=== PATIENT | male | born 1960 | race Caucasian/White ===

== ENCOUNTER 2020-12-14 07:09 | Inpatient (IN) ==
[2020-12-14] MEDS ORDERED: IOPAMIDOL 100 ML BOTTLE IV ONE (07:10)
[2020-12-14] MEDS ORDERED: 0.9 % SODIUM CHLORIDE 1,000 ML IV ONE ×2 (07:42→10:05)
[2020-12-14] MEDS ORDERED: diphenhydrAMINE 50 MG/ML VIAL IV ONE (07:42)
[2020-12-14] MEDS ORDERED: PROCHLORPERAZINE 10 MG/2 ML VIAL IV ONE (07:42)
--- NOTE | 2020-12-14 07:52 | Emergency Department Note ---
Abdominal Pain HPI General Chief Complaint: Abdominal Pain Stated Complaint: Abd pain Time Seen by Provider: 12/14/20 07:42 Source: patient, EMS, RN notes reviewed and old records reviewed Mode of arrival: EMS Limitations: no limitations History of Present Illness HPI Narrative: Narrative: 60-year-old male complains of abdominal pain worsening times the last 24 hours with nausea and vomiting. He describes it as is pancreatitis pain. Has a history of pancreatitis from alcohol abuse. He has positive nausea vomiting no hematemesis or coffee-ground emesis no bright red blood per rectum black tarry stools or diarrhea MD Complaint: abdominal pain Onset (ago): day(s) (1) Consistency: constant Location: epigastric Severity: severe Quality: stabbing and sharp Radiation: back Migration to: no migration Improves with: nothing Worsens with: eating Context: history of similar episodes (History of pancreatitis with similar presentation) Associated symptoms: Reports nausea and vomiting; Denies diarrhea, fever, chills, constipation, dysuria, hematemesis, hematochezia, melena, hematuria, anorexia and syncope Related Data Previous Rx's Medication Instructions Recorded ciprofloxacin 0.3 %-dexamethasone 4 drp OTIC BID #7.5 ml 12/21/19 0.1 % ear drops,suspension Allergies Allergy/AdvReac Type Severity Reaction Status Date / Time No Known Drug Allergies Allergy Verified 12/14/20 07:09 Review of Systems ROS ROS Narrative: Narrative: Constitutional: Denies fever, chills and weakness Eyes: Denies vision change ENT ED: Denies throat pain Cardiovascular: Denies chest pain Respiratory: Reports shortness of breath Gastrointestinal: Reports abdominal pain, nausea and vomiting Musculoskeletal: Denies back pain Integumentary: Reports rash, lesions and change in color Neurological: Denies headache Psychiatric: Denies depression Endocrine: Denies fatigue Hematological/Lymphatic: Denies easy bruising Allergic/Immunologic: Denies urticaria PFSH Narrative Patient History Narrative: Narrative: Medical/Surgical/Family History All Active Problems (Updated 12/14/20 @ 15:09 by Efren Arango MD) Anemia (Acute) Pancreatitis (Acute) Social History Smoking Status: Current every day smoker Exam Narrative Narrative: Narrative: General Limitations: no limitations General appearance: Present alert, in distress and thin Head Head: Present atraumatic and normocephalic Eye Eye: Present normal appearance, PERRL and EOMI ENT ENT: Present normal exam and mucous membranes dry Neck Neck: Present normal inspection and full ROM Chest Chest: Present normal inspection; Absent tenderness Respiratory Respiratory: Present normal lung sounds bilaterally; Absent respiratory distress Cardiovascular Cardiovascular: Present regular rate and normal rhythm; Absent systolic murmur Adbominal Abdominal: Present soft, tenderness, hypoactive bowel sounds and scar; Absent d istention, guarding, rebound, Cruz's sign, tenderness at McBurney's Point and ascites Rectal Rectal: Present decreased rectal tone, heme (-) stool, mass, tenderness and other (Multiple at bedtime lesions on buttocks with hypertrophy in the perirectal area); Absent normal inspection, normal rectal tone, black stool, fecal impaction and prostate tenderness Extremities Extremities: Present normal inspection and full ROM; Absent tenderness, pedal edema and pretibial edema Back Back: Present normal inspection; Absent CVA tenderness (R) and CVA tenderness (L) Neurological Neurological: Present alert and oriented X3 Psychiatric Psychiatric: Present normal affect and normal mood Skin Skin: Present rash and other (Multiple skin lesions on body worse in axillas bilaterally. Patient describes it as a chronic condition HS) Course Vital Signs Vital signs: Vital Signs Temperature 97.9 F 12/14/20 07:09 Pulse Rate 63 12/14/20 07:09 Respiratory Rate 22 12/14/20 07:09 Blood Pressure 127/106 12/14/20 07:09 Pulse Oximetry (%) 100 12/14/20 07:09 Temperature 97.9 F 12/14/20 07:09 Pulse Rate 89 12/14/20 14:01 Respiratory Rate 22 12/14/20 07:09 Blood Pressure 135/114 12/14/20 14:01 Pulse Oximetry (%) 100 12/14/20 14:01 [facility] Narrative Medical decision making narrative: Narrative: Patient has elevated lipase consistent with pancreatitis received IV fluids IV morphine Compazine with diminished abdominal pain diminished nausea vomiting received Ativan for alcohol withdrawal prophylaxis patient will require continued parenteral pain medicines and IV fluids discussed with hospitalist who graciously agreed to admission Lab Data Result diagrams: 12/14/20 08:10 12/14/20 08:10 Labs: Lab Results 12/14/20 12/14/20 12/14/20 Range/Units 08:10 08:10 08:10 WBC 14.2 H (4.5-11.0) K/mcL RBC 3.02 L (4.50-5.90) M/mcL Hgb 6.9 L* (13.5-16.5) g/dL Hct 23.3 L (41.0-55.0) % MCV 77.2 L (80.0-100.0) fL MCH 22.8 L (26.0-34.0) pg MCHC 29.6 L (31.0-36.0) g/dL RDW 18.0 H (11.5-14.5) % Plt Count 411 (140-440) K/mcL MPV 9.7 (7.4-10.4) fL Neut % (Auto) 82.4 H (38.0-78.0) % Lymph % (Auto) 10.3 L (15.0-49.0) % [place] % (Auto) 6.6 (1.0-12.0) % Eos % (Auto) 0.3 (0.0-7.0) % Baso % (Auto) 0.4 (0.0-2.0) % Lymph # (Auto) 1.47 L (1.50-4.80) K/mcL [place] # (Auto) 0.94 H (0.10-0.90) K/mcL Eos # (Auto) 0.04 (0.00-0.70) K/mcL Baso # (Auto) 0.05 (0.00-0.20) K/mcL Absolute Neutrophils 11.71 H (1.80-8.00) K/mcL VBG Lactic Acid 1.5 (0.5-2.0) mmol/L Sodium 135 (133-145) mmol/L Potassium 3.3 (3.3-5.1) mmol/L Chloride 109 H (96-108) mmol/L Carbon Dioxide 13 L (22-30) mmol/L Anion Gap 13.0 (8.0-16.0) BUN 27 H (8-23) mg/dL Creatinine 1.3 H (0.7-1.2) mg/dL POC Creatinine 1.3 H (0.6-1.2) mg/dL GFR Calculation 58 Glucose 154 H (70-105) mg/dL Calcium 9.0 (8.6-10.4) mg/dL Total Bilirubin 0.2 (0.1-1.0) mg/dL AST 10 (<40) U/L ALT < 5 (<40) U/L Alkaline Phosphatase 67 (39-117) U/L Troponin T (<0.03) ng/mL Total Protein 9.0 H (5.9-8.4) gm/dL Albumin 2.7 L (3.2-5.2) gm/dL Globulin 6.3 H (2.2-3.7) gm/dL Albumin/Globulin Ratio 0.4 L (1.0-2.3) Lipase 1683 H (7-60) U/L Ethyl Alcohol (<0.010) gm/dL 12/14/20 12/14/20 Range/Units 08:10 08:10 WBC (4.5-11.0) K/mcL RBC (4.50-5.90) M/mcL Hgb (13.5-16.5) g/dL Hct (41.0-55.0) % MCV (80.0-100.0) fL MCH (26.0-34.0) pg MCHC (31.0-36.0) g/dL RDW (11.5-14.5) % Plt Count (140-440) K/mcL MPV (7.4-10.4) fL Neut % (Auto) (38.0-78.0) % Lymph % (Auto) (15.0-49.0) % [place] % (Auto) (1.0-12.0) % Eos % (Auto) (0.0-7.0) % Baso % (Auto) (0.0-2.0) % Lymph # (Auto) (1.50-4.80) K/mcL [place] # (Auto) (0.10-0.90) K/mcL Eos # (Auto) (0.00-0.70) K/mcL Baso # (Auto) (0.00-0.20) K/mcL Absolute Neutrophils (1.80-8.00) K/mcL VBG Lactic Acid (0.5-2.0) mmol/L Sodium (133-145) mmol/L Potassium (3.3-5.1) mmol/L Chloride (96-108) mmol/L Carbon Dioxide (22-30) mmol/L Anion Gap (8.0-16.0) BUN (8-23) mg/dL Creatinine (0.7-1.2) mg/dL POC Creatinine (0.6-1.2) mg/dL GFR Calculation Glucose (70-105) mg/dL Calcium (8.6-10.4) mg/dL Total Bilirubin (0.1-1.0) mg/dL AST (<40) U/L ALT (<40) U/L Alkaline Phosphatase (39-117) U/L Troponin T < 0.01 (<0.03) ng/mL Total Protein (5.9-8.4) gm/dL Albumin (3.2-5.2) gm/dL Globulin (2.2-3.7) gm/dL Albumin/Globulin Ratio (1.0-2.3) Lipase (7-60) U/L Ethyl Alcohol < 0.010 (<0.010) gm/dL EKG Data EKG #1: EKG attestation: Yes I reviewed and interpreted this EKG. EKG shows normal: sinus rhythm Rate: normal (64) Rhythm: NSR [place]/QRS: normal ST segment depression in: II, III and aVF Q waves: None T wave inversions noted in: None Hyperacute T waves: None QTc: normal Interpretation: nonspecific ST-T wave changes Pulse Oximetry Data Pulse Ox %: 100 Interpretation: 100% on room air within normal limits. Discharge Plan Patient/Caregiver Discharge Instructions Pt seen by SENIOR PRODUCT DEVELOPMENT SCIENTIST/PA only: No Clinical Impression: Pancreatitis, Anemia Patient Disposition: Xfer As Inpt ([facility]) Follow up with: [facility] [Primary [facility]] - Prescriptions: No Action Ciprodex 0.3-0.1 % drops,suspension 4 drp OTIC BID Qty: 7.5 RF: 0
[2020-12-14] MEDS: HYDROmorphone 0.5 MG/0.5 ML SYRINGE IV PRN ×5 (07:57→23:19)
--- NOTE | 2020-12-14 08:04 | XRay Report ---
INDICATION: SOB TECHNIQUE: AP portable upright chest x-ray COMPARISON: None FINDINGS: Lungs:Lungs are negative. No focal pulmonary parenchymal infiltrate or mass Heart, vascular:No significant cardiomegaly. Pulmonary vascularity is normal. No pulmonary edema or pulmonary congestion Mediastinum, flo:No mediastinal widening. No hilar mass Pleura:No pleural fluid. No pleural-based mass or calcification Skeletal:Negative. IMPRESSION: Negative AP chest x-ray Interpreted and Authenticated by: Juan Manuel Topete 12/14/20
[2020-12-14 08:38] LABS: POC Creatinine 1.3 mg/dL (0.6-1.2)
--- NOTE | 2020-12-14 09:28 | Cat Scan Report ---
INDICATION: Epigastric pain with history of pancreatitis COMPARISON: None. TECHNIQUE: Axial images were obtained through the abdomen and pelvis. Sagittally and coronally reformatted images. 80 mL Isovue 370 injected intravenously. Oral contrast material was not administered FINDINGS: Lung bases:Negative. No pulmonary parenchymal nodule. No pleural fluid or pericardial fluid Liver:Negative. No focal intrahepatic mass. No focal abnormality. Liver contour is smooth. No evidence for cirrhosis Gallbladder, bilary:No calcified gallstones. No gallbladder wall thickening. No dilated intra or extrahepatic bile ducts. Spleen:There is splenomegaly. Spleen measures 14 x 14 x 5 cm. No intrasplenic abnormality. Normal enhancement of the splenic and portal vein. Pancreas:There is peripancreatic inflammatory change consistent with interstitial edematous pancreatitis. Pancreas is perfused. There is no pancreatic mass. No pancreatic duct dilatation. No evidence for pancreatic abscess or necrosis. There is no pseudocyst. No free intraperitoneal fluid. No dissection of fluid or inflammatory change into the retroperitoneal pelvis Adrenal glands:Negative Kidneys, ureters, bladder:No solid renal mass. No hydronephrosis. No obstructing calculi. There is no hydroureter. No ureteral stone No bladder calculi or detectable mass Gastrointestinal:No detectable colonic mass. There is no diverticulitis. Jejunum is prominent and fluid-filled. This is probably ileus related to pancreatitis. No evidence for mechanical small bowel obstruction Stomach and duodenum are unremarkable Appendix: The appendix is not visualized. No evidence for appendicitis Vascular:Mild calcification of the abdominal aorta. No abdominal aortic aneurysm. Normal celiac trunk, superior mesenteric artery, inferior mesenteric artery Lymphatic:Mild peripancreatic adenopathy. No para-aortic or iliac chain adenopathy. There are prominent inguinal lymph nodes bilaterally. Largest node on the left measures 2.0 cm in diameter. Largest node on the right measures 2.2 cm in diameter. Mesentery, peritoneum: No intra-abdominal abscess. No pneumoperitoneum Reproductive:No significant prostatic enlargement Musculoskeletal:No lumbar compression fractures. There is marked degenerative disc disease at L5-S1. Sacrum and pelvis are negative. No hip fracture. There is extensive cutaneous and subcutaneous abnormality. In the left lower quadrant there is subcutaneous soft tissue density and evidence for skin ulceration. There is marked CT knee is thickening with cutaneous and subcutaneous gas bubbles overlying the buttocks and perineum. No well-defined discrete abscess. IMPRESSION: 1. Interstitial edematous pancreatitis. No pancreatic mass. No pancreatic necrosis or abscess 2. Extensive cutaneous abnormality in the left lower quadrant as well as over the buttocks and perineum 3. Splenomegaly 4. Mild peripancreatic adenopathy. Prominent inguinal lymph nodes bilaterally The exam was performed using radiation dose optimization techniques including, but not limited to, automated exposure control, adjustment of the mA and/or kV according to patient size and use of iterative reconstruction technique. Interpreted and Authenticated by: Juan Manuel Topete 12/14/20
[2020-12-14 09:47] LABS: Basophils # (Auto) 0.05 K/mcL (0.00-0.20); Basophils % (Auto) 0.4 % (0.0-2.0); Eosinophils # (Auto) 0.04 K/mcL (0.00-0.70); Eosinophils % (Auto) 0.3 % (0.0-7.0); Hematocrit 23.3 % (41.0-55.0); Hemoglobin 6.9 g/dL (13.5-16.5); Lymphocytes # (Auto) 1.47 K/mcL (1.50-4.80); Lymphocytes % (Auto) 10.3 % (15.0-49.0); Mean Cell Volume 77.2 fL (80.0-100.0); Mean Corpuscular HGB Conc 29.6 g/dL (31.0-36.0); Mean Platelet Volume 9.7 fL (7.4-10.4); Monocytes # (Auto) 0.94 K/mcL (0.10-0.90); Monocytes % (Auto) 6.6 % (1.0-12.0); Neutrophils % (Auto) 82.4 % (38.0-78.0); Platelet Count 411 K/mcL (140-440); RBC 3.02 M/mcL (4.50-5.90); WBC 14.2 K/mcL (4.5-11.0)
[2020-12-14 10:00] LABS: ALT/SGPT < 5 U/L (<40); AST/SGOT 10 U/L (<40); Albumin 2.7 gm/dL (3.2-5.2); Albumin/Globulin Ratio 0.4 (1.0-2.3); Alcohol, Blood < 10.0 mg/dL; Alcohol,Blood < 0.010 gm/dL (<0.010); Alkaline Phosphatase 67 U/L (39-117); Bilirubin,Total 0.2 mg/dL (0.1-1.0); Blood Urea Nitrogen 27 mg/dL (8-23); Carbon Dioxide 13 mmol/L (22-30); Chloride 109 mmol/L (96-108); Globulin 6.3 gm/dL (2.2-3.7); Glomerular Filtration Rate 58; Glucose 154 mg/dL (70-105)
[2020-12-14] MEDS ORDERED: LORazepam 2 MG/ML VIAL IV ONE (14:41)
[2020-12-14] MEDS ORDERED: HYDROmorphone 1 MG/ML SYRINGE IV ONE (14:41)
[2020-12-14 15:53] LABS: Iron 16 ug/dL (61-157); TIBC Calculation 266 ug/dl (228-428); Transferrin % Saturation 6 % (20-50)
--- NOTE | 2020-12-14 16:00 | Internal Med History&Physical ---
HPI History of Present Illness Patient information: Note initiated : 12/14/20 at 3:51 pm Service Date, if different from initiated Date: [] Patient: Italo Angel 60 y/o M admitted on for Abd pain. Chief Complaint: [] History of present illness: Mr. Angel is a 60 year old male with a recurrent soft tissue infections, alcohol use disorder, previous acute pancreatitis who presented to the emergency department for pain and found to have acute morrison creatitis. The cause of acute pancreatitis is likely alcohol related. In the ED, the patient also had leukocytosis with WBC 14.2, microcytic anemia with hemoglobin 6.9, serum creatinine of 1.3. No prior labs are available for comparison. CT abdomen and pelvis with IV contrast showed interstitial edema test pancreatitis, no pancreatic mass, no pancreatic necrosis or abscess. The patient was admitted for management of acute pancreatitis and anemia. Review of Systems Review of systems: Review of systems Constitutional: no fever, fatigue, or weight loss Eyes: no vision changes or pain Cardiovascular: no chest pain, no palpitations Respiratory: no cough or dyspnea Gastrointestinal: positive for diffuse abdominal pain Genitourinary: no dysuria or difficulty voiding Musculoskeletal: no arthralgia or myalgia Integumentary: positive for skin infections Neurological: no focal weakness or numbness Psychiatric: no anxiety or depression PFSH PFSH All Active Problems (Updated 12/14/20 @ 15:09 by Efren Arango MD) Anemia (Acute) Pancreatitis (Acute) MEDS/ALLERGIES Home Medications and Allergies Home Medications Medication Instructions Recorded Confirmed Type ciprofloxacin 0.3 %-dexamethasone 4 drp OTIC BID #7.5 ml 12/21/19 12/21/19 Rx 0.1 % ear drops,suspension Allergies Allergy/AdvReac Type Severity Reaction Status Date / Time No Known Drug Allergies Allergy Verified 12/14/20 07:09 EXAM Constitutional Vitals: Temp Pulse Resp BP Pulse Ox 97.9 F 88 22 181/108 100 12/14/20 07:09 12/14/20 14:16 12/14/20 07:09 12/14/20 14:16 12/14/20 14:16 Additional findings Additional findings: Head: Atraumatic, normal inspection. Eyes: normal appearance, no scleral icterus. Neck: full ROM Respiratory: no respiratory distress. Cardiovascular: normal rate and rhythm, S1, S2. GI/Abdominal: diffusely tender, voluntary guarding Extremities: full range of motion, nontender. Neurological: CN II-XII intact, intact motor, intact sensation. Psychiatric: appears anxious Skin: warm, normal color DATA Data Completed and Pending Labs: Labs from last 24 hours 12/14/20 12/14/20 12/14/20 08:10 08:10 08:10 WBC RBC Hgb Hct MCV MCH MCHC RDW Plt Count MPV Neut % (Auto) Lymph % (Auto) [place] % (Auto) Eos % (Auto) Baso % (Auto) Lymph # (Auto) [place] # (Auto) Eos # (Auto) Baso # (Auto) Absolute Neutrophils VBG Lactic Acid Sodium Potassium Chloride Carbon Dioxide Anion Gap BUN Creatinine POC Creatinine GFR Calculation Glucose Calcium Iron Pending TIBC Pending Unsat Iron Binding Pending Transferrin % Sat Pending Ferritin Pending Total Bilirubin AST ALT Alkaline Phosphatase Troponin T < 0.01 Total Protein Albumin Globulin Albumin/Globulin Ratio Lipase Ethyl Alcohol < 0.010 12/14/20 12/14/20 12/14/20 08:10 08:10 08:10 WBC 14.2 H RBC 3.02 L Hgb 6.9 L* Hct 23.3 L MCV 77.2 L MCH 22.8 L MCHC 29.6 L RDW 18.0 H Plt Count 411 MPV 9.7 Neut % (Auto) 82.4 H Lymph % (Auto) 10.3 L [place] % (Auto) 6.6 Eos % (Auto) 0.3 Baso % (Auto) 0.4 Lymph # (Auto) 1.47 L [place] # (Auto) 0.94 H Eos # (Auto) 0.04 Baso # (Auto) 0.05 Absolute Neutrophils 11.71 H VBG Lactic Acid 1.5 Sodium 135 Potassium 3.3 Chloride 109 H Carbon Dioxide 13 L Anion Gap 13.0 BUN 27 H Creatinine 1.3 H POC Creatinine 1.3 H GFR Calculation 58 Glucose 154 H Calcium 9.0 Iron TIBC Unsat Iron Binding Transferrin % Sat Ferritin Total Bilirubin 0.2 AST 10 ALT < 5 Alkaline Phosphatase 67 Troponin T Total Protein 9.0 H Albumin 2.7 L Globulin 6.3 H Albumin/Globulin Ratio 0.4 L Lipase 1683 H Ethyl Alcohol A/P Narrative A/P Narrative: Assessment: 60-year-old male with history of alcohol use disorder episodes of acute pancreatitis admitted for acute pancreatitis likely secondary to alcohol use. #Acute pancreatitis-mild to moderate -probably secondary to alcohol use #Microcytic anemia #Elevated creatinine-BREANA versus CKD #Alcohol use disorder Plan -Aggressive IV fluid. -Analgesics as needed -Clear liquid diet-monitor nutritional status. -Check triglyceride level -1 unit PRBC. -Protonix IV twice daily. -Follow hemoglobin. -Iron studies. -Consider GI consult. -Daily CBC, inpatient panel. -Check CRP for severity. -DVT PPx: Heparin SQ -Code status: Tug Master Spent With Patient Time: Total time spent is greater than 50% in coordination of care (as documented) at patient's floor/unit and/or counseling patient:
[2020-12-14 16:03] LABS: Ferritin 63.7 ng/mL (30.0-400.0)
[2020-12-14] MEDS ORDERED: ONDANSETRON 4 MG/2 ML VIAL IV PRN (17:18)
[2020-12-14] MEDS ORDERED: 0.9 % SODIUM CHLORIDE 250 ML IV SCH (17:18)
[2020-12-14] MEDS ORDERED: LACTATED RINGERS 2,500 ML IV SCH (17:18)
[2020-12-14] MEDS ORDERED: NALOXONE HCL 0.4 MG/ML VIAL IV PRN (17:18)
[2020-12-14] MEDS ORDERED: NICOTINE 14 MG PATCH TOPICAL PRN (17:18)
[2020-12-14 18:36] LABS: Hematocrit 25.8 % (41.0-55.0); Hemoglobin 7.5 g/dL (13.5-16.5); Mean Cell Volume 76.6 fL (80.0-100.0); Mean Corpuscular HGB Conc 29.1 g/dL (31.0-36.0); Mean Platelet Volume 9.5 fL (7.4-10.4); Platelet Count 453 K/mcL (140-440); RBC 3.37 M/mcL (4.50-5.90); Red Cell Distribution Width 17.9 % (11.5-14.5); WBC 18.5 K/mcL (4.5-11.0)
[2020-12-14 19:02] LABS: Anisocytosis 1+ (None Seen); Hypochromasia 2+ (None Seen); Lymphocytes % 9 % (15-49); Microcytosis 1+ (None Seen); Monocytes % (Manual) 5 % (1-12); Platelet Estimate INCREASED (Normal); RBC Morphology ABNORMAL (Normal); Segmented Neutrophils % 86 % (38-78)
[2020-12-14 19:51] LABS: ALT/SGPT < 5 U/L (<40); AST/SGOT 11 U/L (<40); Albumin 2.7 gm/dL (3.2-5.2); Albumin/Globulin Ratio 0.4 (1.0-2.3); Alkaline Phosphatase 71 U/L (39-117); Bilirubin,Direct < 0.2 mg/dL (0-0.3); Bilirubin,Total 0.2 mg/dL (0.1-1.0); Blood Urea Nitrogen 24 mg/dL (8-23); Calcium 8.9 mg/dL (8.6-10.4); Carbon Dioxide 14 mmol/L (22-30); Chloride 110 mmol/L (96-108); Globulin 6.5 gm/dL (2.2-3.7); Glomerular Filtration Rate 71; Glucose 105 mg/dL (70-105); Lactate Dehydrogenase 90 U/L (135-225); Phosphorous 4.2 mg/dL (2.5-4.5); Triglycerides 71 mg/dL (<150); Uric Acid 5.9 mg/dL (2.5-8.0)
[2020-12-14] MEDS ORDERED: MAGNESIUM SULFATE 4 GM/100 ML BAG IV ONE ×2 (19:59→22:28)
[2020-12-14] MEDS: SENNOSIDES 1 TABLET PO SCH (20:46)
[2020-12-14] MEDS: DOCUSATE SODIUM 100 MG CAPSULE PO SCH (20:46)
[2020-12-14] MEDS: 0.9 % SODIUM CHLORIDE 10 ML SYRINGE IV SCH (20:47)
[2020-12-14] MEDS: HEPARIN 5,000 UNIT/ML VIAL SQ SCH (21:11)
[2020-12-15 00:58] LABS: Hematocrit 25.4 % (41.0-55.0); Hemoglobin 7.1 g/dL (13.5-16.5)
[2020-12-15] MEDS: HYDROmorphone 0.5 MG/0.5 ML SYRINGE IV PRN ×4 (03:43→23:30)
[2020-12-15] MEDS: PANTOPRAZOLE 40 MG VIAL IV SCH ×2 (06:40→16:42)
[2020-12-15] MEDS: 0.9 % SODIUM CHLORIDE 10 ML SYRINGE IV SCH ×3 (06:40→20:38)
[2020-12-15 07:14] LABS: ALT/SGPT < 5 U/L (<40); AST/SGOT 12 U/L (<40); Albumin 2.5 gm/dL (3.2-5.2); Albumin/Globulin Ratio 0.4 (1.0-2.3); Alkaline Phosphatase 67 U/L (39-117); Bilirubin,Direct < 0.2 mg/dL (0-0.3); Bilirubin,Total 0.2 mg/dL (0.1-1.0); Blood Urea Nitrogen 22 mg/dL (8-23); Calcium 8.6 mg/dL (8.6-10.4); Carbon Dioxide 16 mmol/L (22-30); Chloride 106 mmol/L (96-108); Globulin 5.8 gm/dL (2.2-3.7); Glomerular Filtration Rate 80; Glucose 91 mg/dL (70-105); Lactate Dehydrogenase 119 U/L (135-225); Phosphorous 3.2 mg/dL (2.5-4.5); Triglycerides 60 mg/dL (<150); Uric Acid 5.7 mg/dL (2.5-8.0)
[2020-12-15 07:15] LABS: Hematocrit 23.4 % (41.0-55.0); Mean Corpuscular HGB Conc 29.9 g/dL (31.0-36.0); Mean Platelet Volume 9.6 fL (7.4-10.4); Platelet Count 392 K/mcL (140-440); RBC 3.08 M/mcL (4.50-5.90); Red Cell Distribution Width 17.8 % (11.5-14.5); WBC 24.1 K/mcL (4.5-11.0)
[2020-12-15] MEDS ORDERED: 0.9 % SODIUM CHLORIDE 250 ML IV SCH (07:30)
[2020-12-15] MEDS ORDERED: LACTATED RINGERS 2,000 ML IV SCH ×2 (07:30→18:51)
[2020-12-15 07:52] LABS: HDL Cholesterol 32 mg/dL (>40); LDL Cholesterol,Calculated 49 mg/dL (<100); Non-HDL Cholesterol 61 mg/dL (<130); Triglycerides 63 mg/dL (<150)
[2020-12-15 08:01] LABS: Anisocytosis 1+ (None Seen); Band Neutrophils % 1 % (0-10); Basophils % (Manual) 1 % (0-2); Eosinophils % (Manual) 1 % (0-7); Hypochromasia 1+ (None Seen); Lymphocytes % 4 % (15-49); Monocytes % (Manual) 8 % (1-12); Platelet Estimate NORMAL (Normal); RBC Morphology ABNORMAL (Normal); Segmented Neutrophils % 85 % (38-78)
[2020-12-15] MEDS: HEPARIN 5,000 UNIT/ML VIAL SQ SCH ×2 (09:03→20:30)
[2020-12-15] MEDS: DOCUSATE SODIUM 100 MG CAPSULE PO SCH ×2 (09:04→20:30)
[2020-12-15] MEDS: LACTATED RINGERS 2,000 ML IV SCH ×2 (11:29→15:33)
--- NOTE | 2020-12-15 11:50 | Internal Med Progress Note ---
SUBJECTIVE Subjective Patient information: Note initiated : 12/15/20 at 11:50 am Service Date, if different from initiated Date: [] Patient: Italo Angel 60 y/o M admitted on 12/14/20 for Abd pain. Chief Complaint: [] Interval history: Mr. Angel is a 60 year old male with a recurrent soft tissue infections, alcohol use disorder, previous acute pancreatitis who presented to the emergency department for pain and found to have acute pancreatitis. The cause of acute pancreatitis is likely alcohol related. In the ED, the patient also had leukocytosis with WBC 14.2, microcytic anemia with hemoglobin 6.9, serum creatinine of 1.3. No prior labs are available for comparison. CT abdomen and pelvis with IV contrast showed interstitial edema test pancreatitis, no pancreatic mass, no pancreatic necrosis or abscess. The patient was admitted for management of acute pancreatitis and anemia. 12/15 Required another unit of pRBC, likely dilutional anemia from IV fluid overnight. Patient does not know his baseline hemoglobin and level of anemia is concerning for possible GI cause of slow bleed. Patient says he had a colonoscopy about 4 years ago that was reportedly unremarkable. Abdominal pain has improved from yesterday, continues on clear liquid diet. Protonix IV BID. Likely GI consult when abdominal pain has mostly improved from acute pancreatitis. Patient takes Humira for hidradenitis suppurativa but no recent changes, no other medications that could cause acute pancreatitis. CT scan did not show any cholelithiasis, no biliary dilation. Alcohol remains most likely reason for acute pancreatitis. Constitutional Vitals: Vital Signs Temp Pulse Resp BP Pulse Ox 98 F 83 14 145/77 98 12/15/20 11:38 12/15/20 11:38 12/15/20 11:38 12/15/20 11:38 12/15/20 11:38 Period Temp Pulse Resp BP Sys/Miller Pulse Ox Last 24 Hr 97.3 F-98.2 F 72-98 - 97-212/64-130 92-100 Intake and Output 12/14/20 12/15/20 12/15/20 21:59 05:59 13:59 Intake Total 3373 537 5331 Output Total 350 Balance 2893 379 8916 Weight 81.647 kg Intake & Output: Intake & Output 12/14/20 12/15/20 12/15/20 21:59 05:59 13:59 Intake Total 2381 806 7852 Output Total 350 Balance 5237 316 9105 Weight 81.647 kg Intake: IV 4921 048 9157 Sodium Chloride 0.9% 1,000 ml @ 1000 Wide Open IV [facility] Rx#: [id number] Lactated Ringers 2,500 ml @ 250 2500 mls/hr IV .Q10H [facility] Rx#: [id number] Oral 800 Blood Product 325 Output: Void Amount 350 Other: Urine Appearance Clear Urine Color Dark Yellow OBJ DATA Labs CBC & Chem 7: 12/15/20 05:13 12/15/20 05:13 Labs: Abnormal Lab Results 12/15/20 12/15/20 12/15/20 05:13 05:13 05:13 WBC 24.1 H RBC 3.08 L Hgb 7.0 L* Hct 23.4 L MCV 76.0 L MCH 22.7 L MCHC 29.9 L RDW 17.8 H Plt Count Neut % (Auto) Lymph % (Auto) Lymph # (Auto) [place] # (Auto) Seg Neutrophils % 85 H Lymphocytes % 4 L Absolute Neutrophils Platelet Estimate RBC Morphology Abnormal A Hypochromasia 1+ A Anisocytosis 1+ A Microcytosis Sodium 132 L Chloride Carbon Dioxide 16 L BUN Creatinine POC Creatinine Glucose Magnesium Iron Transferrin % Sat Lactate Dehydrogenase 119 L C-Reactive Protein 21.80 H Total Protein Albumin 2.5 L Globulin 5.8 H Albumin/Globulin Ratio 0.4 L HDL Cholesterol 32 L Lipase 12/15/20 12/14/20 12/14/20 00:20 17:48 17:48 WBC 18.5 H RBC 3.37 L Hgb 7.1 L 7.5 L Hct 25.4 L 25.8 L MCV 76.6 L MCH 22.3 L MCHC 29.1 L RDW 17.9 H Plt Count 453 H Neut % (Auto) Lymph % (Auto) Lymph # (Auto) [place] # (Auto) Seg Neutrophils % 86 H Lymphocytes % 9 L Absolute Neutrophils Platelet Estimate Increased A RBC Morphology Abnormal A Hypochromasia 2+ A Anisocytosis 1+ A Microcytosis 1+ A Sodium Chloride 110 H Carbon Dioxide 14 L BUN 24 H Creatinine POC Creatinine Glucose Magnesium 0.7 L* Iron Transferrin % Sat Lactate Dehydrogenase 90 L C-Reactive Protein Total Protein 9.2 H Albumin 2.7 L Globulin 6.5 H Albumin/Globulin Ratio 0.4 L HDL Cholesterol Lipase 12/14/20 12/14/20 12/14/20 08:10 08:10 08:10 WBC 14.2 H RBC 3.02 L Hgb 6.9 L* Hct 23.3 L MCV 77.2 L MCH 22.8 L MCHC 29.6 L RDW 18.0 H Plt Count Neut % (Auto) 82.4 H Lymph % (Auto) 10.3 L Lymph # (Auto) 1.47 L [place] # (Auto) 0.94 H Seg Neutrophils % Lymphocytes % Absolute Neutrophils 11.71 H Platelet Estimate RBC Morphology Hypochromasia Anisocytosis Microcytosis Sodium Chloride 109 H Carbon Dioxide 13 L BUN 27 H Creatinine 1.3 H POC Creatinine 1.3 H Glucose 154 H Magnesium Iron 16 L Transferrin % Sat 6 L Lactate Dehydrogenase C-Reactive Protein Total Protein 9.0 H Albumin 2.7 L Globulin 6.3 H Albumin/Globulin Ratio 0.4 L HDL Cholesterol Lipase 1683 H Meds: Medications Docusate Sodium (Docusate Sodium 100 Mg Capsule) 100 mg PO BID [facility] Last Admin: 12/15/20 09:04 Dose: 100 mg Documented by: Heparin Sodium (Porcine) (Heparin 5,000 Unit/Ml Vial) 5,000 unit SQ Q12 [facility] Last Admin: 12/15/20 09:03 Dose: 5,000 unit Documented by: Hydromorphone HCl (Hydromorphone 0.5 Mg/0.5 Ml Syringe) 0.5 mg IV Q2HP PRN; Protocol PRN Reason: Per Pain Protocol Last Admin: 12/15/20 06:41 Dose: 0.5 mg Documented by: Sodium Chloride (Sodium Chloride 0.9%) 250 mls @ 20 mls/hr IV .[id number] [facility] Stop: 12/15/20 19:59 Last Admin: 12/15/20 08:05 Dose: 20 mls/hr Documented by: Lactated Ringer's (Lactated Ringers) 2,000 mls @ 250 mls/hr IV .Q8H [facility] Last Admin: 12/15/20 11:29 Dose: 250 mls/hr Documented by: Naloxone HCl (Naloxone Hcl 0.4 Mg/Ml Vial) 0.1 mg IV Q2MIN PRN PRN Reason: Opiate Reversal Nicotine (Nicotine 14 Mg Patch) 14 mg TOPICAL DAILY@1000 PRN PRN Reason: Nicotine craving Ondansetron HCl (Ondansetron 4 Mg/2 Ml Vial) 4 mg IV Q6HP PRN PRN Reason: Nausea And Vomiting Pantoprazole Sodium (Pantoprazole 40 Mg Vial) 40 mg IV BIDAC [facility] Last Admin: 12/15/20 06:40 Dose: 40 mg Documented by: Senna (Sennosides 1 Tablet) 2 tab PO HS [facility] Last Admin: 12/14/20 20:46 Dose: Not Given Documented by: Sodium Chloride (0.9 % Sodium Chloride 10 Ml Syringe) 10 ml IV Q8 [facility] Last Admin: 12/15/20 06:40 Dose: 10 ml Documented by: A/P Narrative A/P Narrative: Assessment: 60-year-old male with history of alcohol use disorder, extensive hidradenitis supportive, previous acute pancreatitis admitted for acute pancreatitis likely secondary to alcohol use. #Acute pancreatitis-mild to moderate -probably secondary to alcohol use #Draining left buttock wound #Leukocytosis-acute pancreatitis vs infection (buttock abscess?) #Microcytic anemia-s/p 2 units pRBC -iron studies consistent with chronic inflammation -ED guaiac stool reportedly negative #Acute kidney injury-resolved w/ IVF (prerenal secondary acute pancreatitis) #Hidradenitis suppurativa-treated with Humira SQ weekly #Immunosuppression d/t Humira #Alcohol use disorder Plan -Continue IV fluid. -Analgesics as needed -Clear liquid diet-possible advance to full liquid diet soon -Replace electrolytes as needed. -Follow Hemoglobin, transfuse for < 7 or symptomatic anemia. -Protonix IV twice daily. -Daily CBC, inpatient panel. -Left buttock ultrasound. -Wound cultures-consider antibiotic for draining wound if WBC and CRP increase -Blood cultures x2 -Wound care surgery consulted (Dr. Mcgregor). -Follow CRP -Holding Humira -Consider GI consult. 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
--- NOTE | 2020-12-15 14:27 | Ultrasound Report ---
INDICATION: Evaluate for drainable fluid collection TECHNIQUE: Grayscale and color flow Doppler spectral imaging of the buttocks COMPARISON: CT scan dated 12/14/2020 FINDINGS: Patient has extensive induration and discoloration of the skin of the buttocks. This involves much of the back and portions of the abdomen. This is a chronic process. Sonographic appearance is very similar to the CT appearance with irregular subcutaneous and cutaneous densities. No well-defined drainable fluid collection. IMPRESSION: 1. Extensive cutaneous and subcutaneous abnormality 2. No well-defined focal fluid collection Interpreted and Authenticated by: Juan Manuel Topete 12/15/20
[2020-12-15] MEDS ORDERED: NALOXONE HCL 0.4 MG/ML VIAL IV PRN (16:39)
[2020-12-15] MEDS: LACTATED RINGERS 1,000 ML IV SCH (19:39)
[2020-12-15] MEDS: SENNOSIDES 1 TABLET PO SCH (20:31)
[2020-12-16] MEDS: LACTATED RINGERS 1,000 ML IV SCH (03:15)
[2020-12-16] MEDS: HYDROmorphone 0.5 MG/0.5 ML SYRINGE IV PRN ×3 (03:15→21:07)
[2020-12-16] MEDS: 0.9 % SODIUM CHLORIDE 10 ML SYRINGE IV SCH ×3 (06:34→21:11)
[2020-12-16 06:40] LABS: Hemoglobin 6.9 g/dL (13.5-16.5); Mean Cell Volume 77.7 fL (80.0-100.0); Mean Platelet Volume 9.6 fL (7.4-10.4); Platelet Count 278 K/mcL (140-440); RBC 2.96 M/mcL (4.50-5.90); Red Cell Distribution Width 18.9 % (11.5-14.5); WBC 17.6 K/mcL (4.5-11.0)
[2020-12-16] MEDS ORDERED: 0.9 % SODIUM CHLORIDE 250 ML IV SCH (06:45)
[2020-12-16 06:47] LABS: ALT/SGPT < 5 U/L (<40); AST/SGOT 11 U/L (<40); Albumin 1.9 gm/dL (3.2-5.2); Albumin/Globulin Ratio 0.4 (1.0-2.3); Alkaline Phosphatase 62 U/L (39-117); Bilirubin,Direct < 0.2 mg/dL (0-0.3); Bilirubin,Total 0.3 mg/dL (0.1-1.0); Blood Urea Nitrogen 19 mg/dL (8-23); Calcium 8.2 mg/dL (8.6-10.4); Carbon Dioxide 18 mmol/L (22-30); Chloride 108 mmol/L (96-108); Globulin 5.3 gm/dL (2.2-3.7); Glomerular Filtration Rate 58; Glucose 80 mg/dL (70-105); Lactate Dehydrogenase 160 U/L (135-225); Phosphorous 3.1 mg/dL (2.5-4.5); Triglycerides 78 mg/dL (<150); Uric Acid 5.5 mg/dL (2.5-8.0)
[2020-12-16] MEDS: PANTOPRAZOLE 40 MG VIAL IV SCH ×2 (06:55→17:00)
[2020-12-16 07:25] LABS: Anisocytosis 3+ (None Seen); Eosinophils % (Manual) 1 % (0-7); Hypochromasia 2+ (None Seen); Lymphocytes % 8 % (15-49); Microcytosis 1+ (None Seen); Monocytes % (Manual) 7 % (1-12); Platelet Estimate NORMAL (Normal); Polychromasia FEW (None Seen); RBC Morphology ABNORMAL (Normal); Segmented Neutrophils % 84 % (38-78)
[2020-12-16] MEDS ORDERED: LACTATED RINGERS 1,000 ML IV ONE (07:38)
[2020-12-16] MEDS ORDERED: MAGNESIUM SULFATE 2 GM/50 ML BAG IV ONE (07:39)
--- NOTE | 2020-12-16 09:09 | Internal Med Progress Note ---
SUBJECTIVE Subjective Patient information: Note initiated : 12/16/20 at 9:05 am Service Date, if different from initiated Date: [] Patient: Italo Angel 60 y/o M admitted on 12/14/20 for Abd pain. Chief Complaint: [] Interval history: Mr. Angel is a 60 year old male with a recurrent soft tissue infections, alcohol use disorder, previous acute pancreatitis who presented to the emergency department for pain and found to have acute pancreatitis. The cause of acute pancreatitis is likely alcohol related. In the ED, the patient also had leukocytosis with WBC 14.2, microcytic anemia with hemoglobin 6.9, serum creatinine of 1.3. No prior labs are available for comparison. CT abdomen and pelvis with IV contrast showed interstitial edema test pancreatitis, no pancreatic mass, no pancreatic necrosis or abscess. The patient was admitted for management of acute pancreatitis and anemia. 12/15 Required another unit of pRBC, likely dilutional anemia from IV fluid overnight. Patient does not know his baseline hemoglobin and level of anemia is concerning for possible GI cause of slow bleed. Patient says he had a colonoscopy about 4 years ago that was reportedly unremarkable. Abdominal pain has improved from yesterday, continues on clear liquid diet. Protonix IV BID. Likely GI consult when abdominal pain has mostly improved from acute pancreatitis. Patient takes Humira for hidradenitis suppurativa but no recent changes, no other medications that could cause acute pancreatitis. CT scan did not show any cholelithiasis, no biliary dilation. Alcohol remains most likely reason for acute pancreatitis. 12/16 Required another unit pRBC, likely dilutional however GI bleed also possible. Hemodynamically stable, WBC down trending, creatinine increased-increased IV fluids. Discussed anemia with Dr. Tovar for possible GI bleed workup, rec ommended checking stool guaiac again, will consider endoscopic workup when acute pancreatitis resolved. Patient wants to eat and tolerating liquid diet, advanced to regular. Dr. Mcgregor following for extensive hydradenitis suppurativa. Constitutional Vitals: Vital Signs Temp Pulse Resp BP Pulse Ox 97.9 F 95 H 16 160/75 91 12/16/20 03:12 12/16/20 03:12 12/16/20 03:12 12/16/20 03:12 12/16/20 03:12 Period Temp Pulse Resp BP Sys/Miller Pulse Ox Last 24 Hr 97.3 F-98.0 F 83-95 14-20 145-196/68-79 91-98 Intake and Output 12/15/20 12/16/20 12/16/20 21:59 05:59 13:59 Intake Total 2850 1400 Output Total 1 200 400 Balance 2849 1200 -400 Weight 84.453 kg Intake & Output: Intake & Output 12/15/20 12/16/20 12/16/20 21:59 05:59 13:59 Intake Total 2850 1400 Output Total 1 200 400 Balance 2849 1200 -400 Weight 84.453 kg Intake: IV 205 950 Sodium Chloride 0.9% 250 ml @ 50 20 mls/hr IV .[id number] [facility] Rx#: [id number] Lactated Ringers 1,000 ml @ 125 2000 950 mls/hr IV .Q8H [facility] Rx#: [id number] Oral 800 450 Output: Void Amount 200 400 # of times incontinent of urine 1 Other: Urine Appearance Clear Clear Urine Color Straw Straw # Voids 1 Additional findings Additional findings: Head: Atraumatic, normal inspection. Eyes: normal appearance, no scleral icterus. Neck: full ROM Respiratory: no respiratory distress. Cardiovascular: normal rate and rhythm, S1, S2. GI/Abdominal: soft, no guarding, moderate epigastric tenderness and minimal rebound tenderness Extremities: full range of motion, nontender. Neurological: CN II-XII intact, intact motor, intact sensation. Psychiatric: normal mood Skin: extensive hidradenitis suppurativa involving radha axilla, left groin, buttock, draining wound on left buttock OBJ DATA Labs CBC & Chem 7: 12/16/20 05:15 12/16/20 05:15 Labs: Abnormal Lab Results 12/16/20 12/16/20 12/15/20 05:15 05:15 15:28 WBC 17.6 H RBC 2.96 L Hgb 6.9 L* 7.4 L Hct 23.0 L MCV 77.7 L MCH 23.3 L MCHC 30.0 L RDW 18.9 H Plt Count Neut % (Auto) Lymph % (Auto) Lymph # (Auto) [place] # (Auto) Seg Neutrophils % 84 H Lymphocytes % 8 L Absolute Neutrophils Platelet Estimate RBC Morphology Abnormal A Polychromasia Few A Hypochromasia 2+ A Anisocytosis 3+ A Microcytosis 1+ A Sodium Chloride Carbon Dioxide 18 L Anion Gap 7.0 L BUN Creatinine 1.3 H POC Creatinine Glucose Calcium 8.2 L Magnesium 1.5 L Iron Transferrin % Sat Lactate Dehydrogenase C-Reactive Protein 26.50 H Total Protein Albumin 1.9 L Globulin 5.3 H Albumin/Globulin Ratio 0.4 L HDL Cholesterol Lipase 12/15/20 12/15/20 12/15/20 05:13 05:13 05:13 WBC 24.1 H RBC 3.08 L Hgb 7.0 L* Hct 23.4 L MCV 76.0 L MCH 22.7 L MCHC 29.9 L RDW 17.8 H Plt Count Neut % (Auto) Lymph % (Auto) Lymph # (Auto) [place] # (Auto) Seg Neutrophils % 85 H Lymphocytes % 4 L Absolute Neutrophils Platelet Estimate RBC Morphology Abnormal A Polychromasia Hypochromasia 1+ A Anisocytosis 1+ A Microcytosis Sodium 132 L Chloride Carbon Dioxide 16 L Anion Gap BUN Creatinine POC Creatinine Glucose Calcium Magnesium Iron Transferrin % Sat Lactate Dehydrogenase 119 L C-Reactive Protein 21.80 H Total Protein Albumin 2.5 L Globulin 5.8 H Albumin/Globulin Ratio 0.4 L HDL Cholesterol 32 L Lipase 12/15/20 12/14/20 12/14/20 00:20 17:48 17:48 WBC 18.5 H RBC 3.37 L Hgb 7.1 L 7.5 L Hct 25.4 L 25.8 L MCV 76.6 L MCH 22.3 L MCHC 29.1 L RDW 17.9 H Plt Count 453 H Neut % (Auto) Lymph % (Auto) Lymph # (Auto) [place] # (Auto) Seg Neutrophils % 86 H Lymphocytes % 9 L Absolute Neutrophils Platelet Estimate Increased A RBC Morphology Abnormal A Polychromasia Hypochromasia 2+ A Anisocytosis 1+ A Microcytosis 1+ A Sodium Chloride 110 H Carbon Dioxide 14 L Anion Gap BUN 24 H Creatinine POC Creatinine Glucose Calcium Magnesium 0.7 L* Iron Transferrin % Sat Lactate Dehydrogenase 90 L C-Reactive Protein Total Protein 9.2 H Albumin 2.7 L Globulin 6.5 H Albumin/Globulin Ratio 0.4 L HDL Cholesterol Lipase 12/14/20 12/14/20 12/14/20 08:10 08:10 08:10 WBC 14.2 H RBC 3.02 L Hgb 6.9 L* Hct 23.3 L MCV 77.2 L MCH 22.8 L MCHC 29.6 L RDW 18.0 H Plt Count Neut % (Auto) 82.4 H Lymph % (Auto) 10.3 L Lymph # (Auto) 1.47 L [place] # (Auto) 0.94 H Seg Neutrophils % Lymphocytes % Absolute Neutrophils 11.71 H Platelet Estimate RBC Morphology Polychromasia Hypochromasia Anisocytosis Microcytosis Sodium Chloride 109 H Carbon Dioxide 13 L Anion Gap BUN 27 H Creatinine 1.3 H POC Creatinine 1.3 H Glucose 154 H Calcium Magnesium Iron 16 L Transferrin % Sat 6 L Lactate Dehydrogenase C-Reactive Protein Total Protein 9.0 H Albumin 2.7 L Globulin 6.3 H Albumin/Globulin Ratio 0.4 L HDL Cholesterol Lipase 1683 H Meds: Medications Docusate Sodium (Docusate Sodium 100 Mg Capsule) 100 mg PO BID [facility] Last Admin: 12/15/20 20:30 Dose: 100 mg Documented by: Heparin Sodium (Porcine) (Heparin 5,000 Unit/Ml Vial) 5,000 unit SQ Q12 [facility] Last Admin: 12/15/20 20:30 Dose: 5,000 unit Documented by: Hydromorphone HCl (Hydromorphone 0.5 Mg/0.5 Ml Syringe) 1 mg IV Q2HP PRN; Protocol PRN Reason: Per Pain Protocol Last Admin: 12/16/20 03:15 Dose: 1 mg Documented by: Lactated Ringer's (Lactated Ringers) 1,000 mls @ 125 mls/hr IV .Q8H [facility] Stop: 12/16/20 11:14 Last Admin: 12/16/20 03:15 Dose: 125 mls/hr Documented by: Sodium Chloride (Sodium Chloride 0.9%) 250 mls @ 20 mls/hr IV .[id number] [facility] Stop: 12/16/20 19:14 Magnesium Sulfate (Magnesium Sulfate) 2 gm in 50 mls @ 25 mls/hr IV ONCE ONE Stop: 12/16/20 09:38 Last Admin: 12/16/20 09:03 Dose: 25 mls/hr Documented by: Naloxone HCl (Naloxone Hcl 0.4 Mg/Ml Vial) 0.1 mg IV Q2MIN PRN PRN Reason: Opiate Reversal Naloxone HCl (Naloxone Hcl 0.4 Mg/Ml Vial) 0.2 mg IV Q5M PRN PRN Reason: Opiate Reversal Nicotine (Nicotine 14 Mg Patch) 14 mg TOPICAL DAILY@1000 PRN PRN Reason: Nicotine craving Ondansetron HCl (Ondansetron 4 Mg/2 Ml Vial) 4 mg IV Q6HP PRN PRN Reason: Nausea And Vomiting Pantoprazole Sodium (Pantoprazole 40 Mg Vial) 40 mg IV BIDAC [facility] Last Admin: 12/16/20 06:55 Dose: 40 mg Documented by: Senna (Sennosides 1 Tablet) 2 tab PO HS [facility] Last Admin: 12/15/20 20:31 Dose: 2 tab Documented by: Sodium Chloride (0.9 % Sodium Chloride 10 Ml Syringe) 10 ml IV Q8 [facility] Last Admin: 12/16/20 06:34 Dose: Not Given Documented by: A/P Narrative A/P Narrative: Assessment: 60-year-old male with history of alcohol use disorder, extensive hidradenitis supportive, previous acute pancreatitis admitted for acute pancreatitis likely secondary to alcohol use, found to have severe anemia. #Acute pancreatitis-mild to moderate -probably secondary to alcohol use #Draining left buttock wound #Leukocytosis-acute pancreatitis vs infection (buttock abscess?) #Microcytic anemia-s/p 2 units pRBC -iron studies mostly consistent with chronic inflammation but could also be component of iron deficiency -ED guaiac stool reportedly negative #Elevated creatine-initially improved with IVF then increased back to 1.3 -baseline renal function not known -BREANA vs CKD #Extensive hidradenitis suppurativa-treated with Humira SQ weekly -imaging showed no drainable fluid collection associated with draining left buttock wound #Immunosuppression d/t Humira #Alcohol use disorder-no evidence of alcohol withdrawal Plan -Continue IV fluid. -Analgesics as needed -Advance to regular w/ low fat -Replace electrolytes as needed. -Follow Hemoglobin, transfuse for < 7 or symptomatic anemia. -Protonix IV twice daily. -Dr. Tovar consulted for possible endoscopy after acute pancreatitis resolves. -Venofer IV x3. -Daily CBC, inpatient panel. -Follow wound cultures -Follow blood cultures x2 -Wound care surgery consulted (Dr. Mcgregor). -Follow CRP -Holding Humira -Request outside records. -DVT PPx: Heparin SQ -Code status: Full -Disposition: probably home when stable Time Spent With Patient Time: Total time spent is greater than 50% in coordination of care (as d ocumented) at patient's floor/unit and/or counseling patient:
[2020-12-16] MEDS: DOCUSATE SODIUM 100 MG CAPSULE PO SCH ×2 (10:15→20:58)
[2020-12-16] MEDS: HEPARIN 5,000 UNIT/ML VIAL SQ SCH ×2 (10:15→20:57)
[2020-12-16] MEDS ORDERED: IRON SUCROSE COMPLEX 400 MG in 0.9 % SODIUM CHLORIDE 250 ML IV SCH (11:00)
--- NOTE | 2020-12-16 13:22 | General Surgery Consult Note ---
HPI Data of Consult Consult date: 12/15/20 Requesting physician: Emmanuel Mccarty Primary Care Provider: [facility] Consult Narrative Patient Information: Note initiated : 12/16/20 at 1:17 pm Service Date, if different from initiated Date: [] Patient: Italo Angel 60 y/o M admitted on 12/14/20 for Abdominal pain. Chief Complaint: []Wound care consult: I saw this patient on morning rounds with Lynn RN, Admitted via ER last evening with acute exacerbation of chronic alcohol related pancreatitis. Patient has chronic extensive recurring hidradenitis suppurativa of both axill ae, groins, buttocks and amaya anal regions. Multiple chronic sinuses with serous purulent drainage. cc:: CC: Emmanuel Mccarty MD PFSH PFSH All Active Problems (Updated 12/14/20 @ 15:09 by Efren Arango MD) Anemia (Acute) Pancreatitis (Acute) MEDS/ALLERGIES Home Medications and Allergies Home Medications Medication Instructions Recorded Confirmed Type adalimumab [Humira Pen] 40 mg SUBCUT WEEKLY 12/14/20 12/14/20 History Allergies Allergy/AdvReac Type Severity Reaction Status Date / Time No Known Drug Allergies Allergy Verified 12/14/20 07:09 Physical Examination Vital Signs Vital signs: Temp Pulse Resp BP Pulse Ox 98.5 F 87 20 158/78 94 12/16/20 08:00 12/16/20 08:00 12/16/20 08:00 12/16/20 08:00 12/16/20 08:00 General physical appearance General physical exam: well developed, well nourished and no distress Eyes Eye exam: PERRL and normal ocular movement ENT ENT exam: normal pinna, normal nares, normal mucosa and no congestion Head Head exam IM: Present atraumatic and normocephalic Neck Neck exam: no masses, no bruits, trachea midline, no lymphadenopathy and no venous distension Cardiovascular Cardiovascular exam IM: Present normal rate and rhythm Respiratory Respiratory exam: normal expansion and clear to auscultation Abdomen Abdomen: Present soft, bowel sounds (absent) and distended Genitourinary Genitourinary (Male): Present other (Hidradenitis of scrotal and perianl regions. Both testes in scrotum) Integumentary Integumentary: Present other (EXTENSIVE AREAS OF HIDRADENITIS both axillae, groins, scrotal regions, buttocks and perianal regions. Multiple sinuses and soft tissue edema of skin and subcutaneous tissues.) Neurologic Neurologic: Present normal coordination and other (Unremarkable neurological examination. CONTINENT of urine and stool.) Musculoskeletal Musculoskeletal: Present other (Symmetrical extremtities. NON focal neurological findings. ) Psychiatric Psychiatric: Present oriented to time, oriented to person, oriented to place and speech is normal Additional Findings Additional exam: Multiple chronic sinuses of hidradenitis regions, especially around buttocks and groins. Results Labs Result diagrams: 12/16/20 05:15 12/16/20 05:15 Labs: Abnormal lab results 12/15/20 12/16/20 12/16/20 Range/Units 15:28 05:15 05:15 WBC 17.6 H (4.5-11.0) K/mcL RBC 2.96 L (4.50-5.90) M/mcL Hgb 7.4 L 6.9 L* (13.5-16.5) g/dL Hct 23.0 L (41.0-55.0) % MCV 77.7 L (80.0-100.0) fL MCH 23.3 L (26.0-34.0) pg MCHC 30.0 L (31.0-36.0) g/dL RDW 18.9 H (11.5-14.5) % Seg Neutrophils % 84 H (38-78) % Lymphocytes % 8 L (15-49) % RBC Morphology Abnormal A (Normal) Polychromasia Few A (None Seen) Hypochromasia 2+ A (None Seen) Anisocytosis 3+ A (None Seen) Microcytosis 1+ A (None Seen) Carbon Dioxide 18 L (22-30) mmol/L Anion Gap 7.0 L (8.0-16.0) Creatinine 1.3 H (0.7-1.2) mg/dL Calcium 8.2 L (8.6-10.4) mg/dL Magnesium 1.5 L (1.6-2.5) mg/dL C-Reactive Protein 26.50 H (0.03-0.80) mg/dL Albumin 1.9 L (3.2-5.2) gm/dL Globulin 5.3 H (2.2-3.7) gm/dL Albumin/Globulin Ratio 0.4 L (1.0-2.3) Diabetes panel 12/16/20 Range/Units 05:15 Sodium 133 (133-145) mmol/L Potassium 3.4 (3.3-5.1) mmol/L Chloride 108 (96-108) mmol/L Carbon Dioxide 18 L (22-30) mmol/L BUN 19 (8-23) mg/dL Creatinine 1.3 H (0.7-1.2) mg/dL Glucose 80 (70-105) mg/dL Calcium 8.2 L (8.6-10.4) mg/dL AST 11 (<40) U/L ALT < 5 (<40) U/L Alkaline Phosphatase 62 (39-117) U/L Total Protein 7.2 (5.9-8.4) gm/dL Albumin 1.9 L (3.2-5.2) gm/dL Triglycerides 78 (<150) mg/dL Calcium panel 12/16/20 Range/Units 05:15 Calcium 8.2 L (8.6-10.4) mg/dL Phosphorus 3.1 (2.5-4.5) mg/dL Albumin 1.9 L (3.2-5.2) gm/dL Pituitary panel 12/16/20 Range/Units 05:15 Sodium 133 (133-145) mmol/L Potassium 3.4 (3.3-5.1) mmol/L Chloride 108 (96-108) mmol/L Carbon Dioxide 18 L (22-30) mmol/L BUN 19 (8-23) mg/dL Creatinine 1.3 H (0.7-1.2) mg/dL Glucose 80 (70-105) mg/dL Calcium 8.2 L (8.6-10.4) mg/dL Adrenal panel 12/16/20 Range/Units 05:15 Sodium 133 (133-145) mmol/L Potassium 3.4 (3.3-5.1) mmol/L Chloride 108 (96-108) mmol/L Carbon Dioxide 18 L (22-30) mmol/L BUN 19 (8-23) mg/dL Creatinine 1.3 H (0.7-1.2) mg/dL Glucose 80 (70-105) mg/dL Calcium 8.2 L (8.6-10.4) mg/dL Total Bilirubin 0.3 (0.1-1.0) mg/dL AST 11 (<40) U/L ALT < 5 (<40) U/L Alkaline Phosphatase 62 (39-117) U/L Total Protein 7.2 (5.9-8.4) gm/dL Albumin 1.9 L (3.2-5.2) gm/dL All other labs normal. A/P Narrative A/P Narrative: Assessment: Acute exacerbation of chronic pancreatitis ( alcohol related ) ELEVATED LDH, CRP, LIPASE, Creatinine and Leucocytosis. Anemia. treated with PRBC transfusions. Hemoconcentration being hydrated with IV crystalloids. Chronic colonized polymicrobial skin wounds. Plan: Local wound care as discussed with wound care nurse and Hospitalist Physician. Will follow patient during his hospitalization. Time Spent With Patient Time: Total time spent is greater than 50% in coordination of care (as documented) at patient's floor/unit and/or counseling patient: Total time spent with greater than 50% in coordination of care (as documented) at patient's floor/unit and/or counseling patient:: Greater than 35 minutes
[2020-12-16] MEDS ORDERED: hydrALAZINE 20 MG/ML VIAL IV PRN (15:21)
[2020-12-16 19:18] LABS: Hematocrit 24.8 % (41.0-55.0); Hemoglobin 7.8 g/dL (13.5-16.5)
[2020-12-16] MEDS: SENNOSIDES 1 TABLET PO SCH (20:58)
[2020-12-17] MEDS: HYDROmorphone 0.5 MG/0.5 ML SYRINGE IV PRN (03:33)
[2020-12-17] MEDS: 0.9 % SODIUM CHLORIDE 10 ML SYRINGE IV SCH ×2 (06:16→13:23)
[2020-12-17 06:29] LABS: Hematocrit 24.1 % (41.0-55.0); Hemoglobin 7.5 g/dL (13.5-16.5); Mean Cell Volume 77.7 fL (80.0-100.0); Mean Corpuscular HGB Conc 31.1 g/dL (31.0-36.0); Mean Platelet Volume 9.7 fL (7.4-10.4); Platelet Count 258 K/mcL (140-440); Red Cell Distribution Width 19.4 % (11.5-14.5); WBC 18.2 K/mcL (4.5-11.0)
[2020-12-17] MEDS: PANTOPRAZOLE 40 MG VIAL IV SCH (06:52)
[2020-12-17 06:59] LABS: ALT/SGPT < 5 U/L (<40); AST/SGOT 12 U/L (<40); Albumin 2.1 gm/dL (3.2-5.2); Albumin/Globulin Ratio 0.4 (1.0-2.3); Alkaline Phosphatase 71 U/L (39-117); Bilirubin,Direct < 0.2 mg/dL (0-0.3); Bilirubin,Total 0.4 mg/dL (0.1-1.0); Blood Urea Nitrogen 23 mg/dL (8-23); Calcium 8.6 mg/dL (8.6-10.4); Carbon Dioxide 15 mmol/L (22-30); Chloride 111 mmol/L (96-108); Globulin 5.3 gm/dL (2.2-3.7); Glomerular Filtration Rate 58; Glucose 72 mg/dL (70-105); Lactate Dehydrogenase 164 U/L (135-225); Phosphorous 3.2 mg/dL (2.5-4.5); Triglycerides 67 mg/dL (<150); Uric Acid 5.8 mg/dL (2.5-8.0)
[2020-12-17 07:40] LABS: Anisocytosis 2+ (None Seen); Hypochromasia 1+ (None Seen); Lymphocytes % 8 % (15-49); Microcytosis 1+ (None Seen); Monocytes % (Manual) 1 % (1-12); Platelet Estimate NORMAL (Normal); Polychromasia 1+ (None Seen); RBC Fragments FEW (None Seen); RBC Morphology ABNORMAL (Normal); Segmented Neutrophils % 91 % (38-78)
--- NOTE | 2020-12-17 09:18 | General Surgery Progress Note ---
SUBJECTIVE Subjective Patient information: Note initiated : 12/17/20 at 9:06 am Service Date, if different from initiated Date: [] Patient: Italo Angel 60 y/o M admitted on 12/14/20 for Abd pain. Chief Complaint: [] Additional PMFSH (Level 3 Only): Patient seen with Ina SALDAÑA. Examined patient in his room standing up, with wounds of back and, groins and axillae adequately exposed. Patient looks better, is hungry and wants advancement of his diet. He refused MIST treatment ordered yesterday, Constitutional Vitals: Vital Signs Temp Pulse Resp BP Pulse Ox 97.9 F 79 16 141/74 95 12/17/20 07:11 12/17/20 07:11 12/17/20 07:11 12/17/20 07:11 12/17/20 07:11 Period Temp Pulse Resp BP Sys/Miller Pulse Ox Last 24 Hr 97.7 F-98.5 F 79-95 16-20 141-192/72-78 92-99 Intake and Output 12/16/20 12/17/20 12/17/20 21:59 05:59 13:59 Intake Total 1745 200 Output Total 275 Balance 1470 200 Weight 200 lb Intake & Output: Intake & Output 12/16/20 12/17/20 12/17/20 21:59 05:59 13:59 Intake Total 1745 200 Output Total 275 Balance 1470 200 Weight 200 lb Intake: IV 1060 Sodium Chloride 0.9% 250 ml @ 60 20 mls/hr IV .[id number] ROSLYN Rx#: [id number] Lactated Ringers 1,000 ml @ 125 1000 mls/hr IV .Q8H ROSLYN Rx#: [id number] Oral 360 200 Blood Product 325 Output: Void Amount 275 Other: Meal Dinner Breakfast Percent of Meal Consumed 75% Refused General appearance: cooperative and no acute distress Exam: AVSS. HEENT and Neck WNL. Chest CTA Abdomen is soft and distended. ( Baseline ) Extremities: No edema NO tenderness. WOUNDS: Chronic hidradenitis with multiple sinuses. Lower back, buttocks, genitalia, groins and axillae. NO pus, NO odor, NO signs of cellulitis. Patient has been cleaning these areas with antibacterial soap and water. Needs to continue with local wound care and apply Bacitracin and dry gauze at least twice a day and as needed. HE wants to leave hospital today. A/P Narrative A/P Narrative: Assessment: Chronic wounds as above. NO drainage at this time. Responding to local wound care and Bacitracin ointment application Will continue same. Patient will likely do this on his own. Needs supplies. Reviewed Lab results. Plan: Continue present wound care. If discharged f/u at wound care center in 2 weeks. Time Spent With Patient Time: Total time spent is greater than 50% in coordination of care (as documented) at patient's floor/unit and/or counseling patient: Total time spent with greater than 50% in coordination of care (as documented) at patient's floor/unit and/or counseling patient:: 25 - 35 minutes
[2020-12-17] MEDS ORDERED: HYDROcodone/APAP 5/325MG TABLET PO PRN (09:32)
[2020-12-17] MEDS: DOCUSATE SODIUM 100 MG CAPSULE PO SCH (10:00)
[2020-12-17] MEDS: HEPARIN 5,000 UNIT/ML VIAL SQ SCH (10:00)
--- NOTE | 2020-12-17 13:14 | Discharge Summary ---
Discharge Provider Provider Patient information: Note initiated : 12/17/20 at 1:09 pm Service Date, if different from initiated Date: [] Patient: Italo Angel 60 y/o M admitted on 12/14/20 for Abd pain. DISCHARGE DIAGNOSIS 60-year-old male with history of alcohol use disorder, extensive hidradenitis supportive, previous acute pancreatitis admitted for acute pancreatitis likely secondary to alcohol use, found to have severe anemia. #Acute pancreatitis-mild to moderate-probably secondary to alcohol use. resolved #Draining left buttock wound, F/u Wound care, MAnged by Dr Kennedy #Leukocytosis-acute pancreatitis vs infection (buttock abscess?) #Microcytic anemia-s/p 2 units pRBC,/IV iron infusion #Elevated creatine-initially improved with IVF then increased back to 1.3 #Extensive hidradenitis suppurativa-treated with Humira SQ weekly -imaging showed no drainable fluid collection associated with draining left buttock wound #Immunosuppression d/t Humira, #Alcohol use disorder-no evidence of alcohol withdrawal HOSPITAL COURSE Mr. Angel is a 60 year old male with a recurrent soft tissue infections, alcohol use disorder, previous acute pancreatitis who presented to the emergency department for pain and found to have acute pancreatitis. The cause of acute pancreatitis is likely alcohol related. In the ED, the patient also had leukocytosis with WBC 14.2, microcytic anemia with hemoglobin 6.9, serum creatinine of 1.3. No prior labs are available for comparison. CT abdomen and pelvis with IV contrast showed interstitial edema test pancreatitis, no pancreatic mass, no pancreatic necrosis or abscess. The patient was admitted for management of acute pancreatitis and anemia. 12/15 Required another unit of pRBC, likely dilutional anemia from IV fluid overnight. Patient does not know his baseline hemoglobin and level of anemia is concerning for possible GI cause of slow bleed. Patient says he had a colonoscopy about 4 years ago that was reportedly unremarkable. Abdominal pain has improved from yesterday, continues on clear liquid diet. Protonix IV BID. Likely GI consult when abdominal pain has mostly improved from acute pancreatitis. Patient takes Humira for hidradenitis suppurativa but no recent changes, no other medications that could cause acute pancreatitis. CT scan did not show any cholelithiasis, no biliary dilation. Alcohol remains most likely reason for acute pancreatitis. 12/16 Required another unit pRBC, likely dilutional however GI bleed also possible. Hemodynamically stable, WBC down trending, creatinine increased-increased IV fluids. Discussed anemia with Dr. Tovar for possible GI bleed workup, recommended checking stool guaiac again, will consider endoscopic workup when acute pancreatitis resolved. Patient wants to eat and tolerating liquid diet, advanced to regular. Dr. Mcgregor following for extensive hydradenitis suppurativa. 12/17-patient doing well. Requesting discharge. Tolerating low-fat diet. Advised to follow-up outpatient with Dr. Barroso for endoscopy, no further drop in crit, will follow up with outpatient wound care Dr. Kennedy. Discharge instructions as below Date of admission: 12/14/20 17:09 Discharge date: 12/17/20 Primary care physician: [facility] Consults: 12/14/20 Consult to Physician [CONS] Stat Comment: Consulting Provider: Emmanuel Mccarty Reason For Exam: Physician to Consult Consult to Physician [CONS] Stat Comment: Hospitalist Consulting Provider: [facility] Reason For Exam: Physician to Consult 12/15/20 08:52 Consult to Physician [CONS] Routine Comment: draining wound on buttock Consulting Provider: Chandrakant Kennedy Reason For Exam: Physician to Consult 12/16/20 09:09 Consult to Physician [CONS] Routine Comment: Anemia requiring multiple unit RBC-GI bleed? Consulting Provider: Tyler Tovar Reason For Exam: Physician to Consult Discharge Meds Discharge Medications Home Medications adalimumab [Humira Pen] 40 mg SUBCUT WEEKLY 12/14/20 [History Confirmed 12/14/20 Last Taken 12/09/20] COURSE Hospital Course Hospital course: . Discharge diagnosis: . Time Spent with Patient Time attestation: Total time spent providing and/or coordinating discharge services: EXAM Constitutional Vitals: Temp Pulse Resp BP Pulse Ox 97.8 F 81 16 165/81 97 12/17/20 11:46 12/17/20 11:46 12/17/20 11:46 12/17/20 11:46 12/17/20 11:46 Discharge Data Data Completed and Pending Labs on day of discharge: Labs from last 24 hours 12/17/20 12/17/20 12/16/20 05:18 05:17 18:25 WBC 18.2 H RBC 3.10 L Hgb 7.5 L 7.8 L Hct 24.1 L 24.8 L MCV 77.7 L MCH 24.2 L MCHC 31.1 RDW 19.4 H Plt Count 258 MPV 9.7 Seg Neutrophils % 91 H Lymphocytes % 8 L Monocytes % (Manual) 1 Platelet Estimate Normal RBC Morphology Abnormal A Polychromasia 1+ A Hypochromasia 1+ A Anisocytosis 2+ A Microcytosis 1+ A RBC Fragments Few A Sodium 135 Potassium 3.6 Chloride 111 H Carbon Dioxide 15 L Anion Gap 9.0 BUN 23 Creatinine 1.3 H GFR Calculation 58 Glucose 72 Uric Acid 5.8 Calcium 8.6 Phosphorus 3.2 Magnesium 1.9 Total Bilirubin 0.4 Direct Bilirubin < 0.2 GGT 19 AST 12 ALT < 5 Alkaline Phosphatase 71 Lactate Dehydrogenase 164 C-Reactive Protein 31.60 H Total Protein 7.4 Albumin 2.1 L Globulin 5.3 H Albumin/Globulin Ratio 0.4 L Triglycerides 67 Preliminary micro results at discharge 12/15/20 10:32 Gram Stain - Preliminary Buttock - Left Anaerobic Culture - Preliminary 12/15/20 07:47 Blood Culture - Preliminary Blood 12/15/20 07:42 Blood Culture - Preliminary Blood 12/15/20 10:32 Gram Stain - Preliminary Wound - Not Given Wound Culture - Preliminary Discharge Plan Patient/Caregiver Discharge Instructions Activity: increase activity as tolerated Diet: Low Fat Instructions: Pancreatitis (GEN), Low Fat Diet (DC) Activity Restrictions/Additional Instructions: Follow-up with wound care Dr. Snow as outpatient Follow Dr. Griffith for upper endoscopy to rule out possible upper GI source of bleeding(anemia on presentation) Follow-up PCP in 5 to 7 days Low-fat diet We are sending you with a home test kit to obtain a stool sample. Please follow the directions and return the sample as soon as you can. Follow up with the [facility] for referrals to podiatry after discharge for nail toenail trimming and to wound care Wound care at home: Clean wounds with antibacterial soap and warm water, apply bacitracin to open wounds. Prescriptions: No Action Humira Pen 40 mg/0.8 mL Pen Injector Kit 40 mg SUBCUT WEEKLY RF: 0 Follow Up Plan Follow up with: [facility] [Primary Care Provider] - Patient Disposition: Home, Self-Care Rehab Potential: Fair I certify that the patient requires SNF services: No Overall status at discharge: patient is progressing back to baseline Discharge Orders: Discharge Order (Routine); Ordered 12/17/20 Ordered By: Carlos Enrique Massey
== END 2020-12-17 14:30 | disposition home or self-care (01) | DRG 439 ==
LOC: ED 07:09 → MEDSUR 17:05
PROVIDERS: ADMIT Internal Medicine; ATTEND Internal Medicine

== ENCOUNTER 2021-02-14 21:00 | Observation (INO) ==
[2021-02-14] MEDS ORDERED: IOPAMIDOL 100 ML BOTTLE IV ONE (21:01)
[2021-02-14] MEDS ORDERED: LACTATED RINGERS 1,000 ML IV ONE ×2 (21:31→23:00)
[2021-02-14] MEDS ORDERED: PROCHLORPERAZINE 10 MG/2 ML VIAL IV ONE (22:00)
[2021-02-14] MEDS ORDERED: diphenhydrAMINE 50 MG/ML VIAL IV ONE (22:00)
--- NOTE | 2021-02-14 22:05 | Emergency Department Note ---
HPI General Chief complaint: Nausea/Vomiting/Diarrhea Stated complaint: N/V Time Seen by Provider: 02/14/21 21:27 Source: patient and EMS Mode of arrival: EMS Limitations: no limitations History of Present Illness HPI Narrative: Narrative: Patient is a 60-year-old male with history of hidradenitis suppurativa as well as alcoholism and pancreatitis. He was just discharged from the hospital about a month ago and states he has not had any alcohol since. 4 days or so of increased nausea vomiting and diarrhea. He feels more fatigued and dehydrated. He notes chronic skin wounds from picking and scratching at the hidradenitis lesions. He has not had any fever. Denies any cough. He has not had any blood in the vomit or the stool. No abdominal pain except with the cramping with diarrhea as well as the vomiting. He states it does not feel like his prior pancreatitis. Related Data Home Medications Medication Instructions Recorded Confirmed adalimumab [Humira Pen] 40 mg SUBCUT WEEKLY 12/14/20 02/14/21 Allergies Allergy/AdvReac Type Severity Reaction Status Date / Time No Known Drug Allergies Allergy Verified 02/14/21 21:06 Review of Systems ROS ROS Narrative: Narrative: A 10 system review of systems was performed and found to be negative except as outlined above. [facility] Narrative Patient History Narrative: Narrative: Medical/Surgical/Family History All Active Problems (Updated 02/15/21 @ 06:50 by Stevie Bass MD) Anemia (Acute) Colitis due to Clostridium difficile (Acute) Colitis (Acute) Hidradenitis suppurativa (Acute) Pancreatitis (Acute) Social History Smoking Status: Current every day smoker Exam Narrative Narrative: Narrative: General: Alert, fatigued, appearing older than stated age. Speaking full sentences without dyspnea. HEENT: NCAT, PERRL, Oral pharynx with dry mucus membranes. No pharyngeal erythema. Noted conjunctival pallor Neck: Supple, No lymphadenopathy Chest: Stable Heart: Regular rate and rhythm without murmur Lungs: Clear to auscultation bilaterally Abdomen: Soft, nondistended, mild epigastric discomfort with more nausea with palpation : No bladder distention Back: Nontraumatic, No CVA tenderness to palpation. Skin: Diffuse areas of skin scarring which patient notes is from the hidradenitis. No evidence of acute cellulitic change. Extremity: No cyanosis, there is trace bilateral lower extremity edema, pulses 1+ radial Neurologic: Moves all extremities in appropriate coordinated fashion. General Limitations: no limitations Course Vital Signs Vital signs: Vital Signs Temperature 97.7 F 02/14/21 21:01 Pulse Rate 113 H 02/14/21 21:01 Respiratory Rate 20 02/14/21 21:01 Blood Pressure 124/100 02/14/21 21:01 Pulse Oximetry (%) 99 02/14/21 21:01 Temperature 97.7 F 02/14/21 21:01 Pulse Rate 82 02/15/21 06:38 Respiratory Rate 25 H 02/15/21 03:59 Blood Pressure 146/76 02/15/21 05:31 Pulse Oximetry (%) 100 02/15/21 06:38 MDM MDM Narrative Medical decision making narrative: Narrative: Patient presents with nausea vomiting and diarrhea. He is without significant finding on exam other than dehydration. His stool is greenish. Is not able to provide further stool for C. difficile but given that he has been on recent antibiotics, will treat for C. difficile. His calcium was low which is somewhat consistent with his low albumin but he was given further calcium replacement. He is given IV fluid hydration and is feeling much improved. His white blood cell count is consistently increased. His lactate is normal. Patient had CT scan which did show fluid throughout the bowels consistent with colitis but no focal area of inflammation. Certainly if this is not C. difficile colitis it could be nonspecific colitis which would also be treated with fluids and supportive care. Patient has not had any further vomiting or diarrhea after being treated with the Imodium in the Compazine. Unfortunately the CT scan shows degree of inflammation which I feel is more likely associated with his hidrade nitis suppurativa but which is felt to be progressive from his prior and with some areas of gas. Again patient was treated with Rocephin shortly after arrival but then also with Flagyl with consideration of C. difficile. His C. difficile came back negative. With the consideration of any infection of his areas of hidradenitis, he is given further vancomycin and meropenem in consultation with surgeon Cory Farrell. Dr. Farrell is kindly agreed to admit the patient for further evaluation and treatment of the skin disease. Again at this time patient is with improved hydration and is appearing better overall and his responsiveness and movement about on the gurney. Lab Data Result diagrams: 02/14/21 22:03 02/14/21 22:03 Labs: Lab Results 02/14/21 02/14/21 02/14/21 Range/Units 22:03 22:03 22:03 WBC 17.6 H (4.5-11.0) K/mcL RBC 3.33 L (4.50-5.90) M/mcL Hgb 8.8 L (13.5-16.5) g/dL Hct 27.9 L (41.0-55.0) % MCV 83.8 (80.0-100.0) fL MCH 26.4 (26.0-34.0) pg MCHC 31.5 (31.0-36.0) g/dL RDW 18.7 H (11.5-14.5) % Plt Count 475 H (140-440) K/mcL MPV 11.1 H (7.4-10.4) fL Neut % (Auto) 82.3 H (38.0-78.0) % Lymph % (Auto) 12.4 L (15.0-49.0) % Charlotte % (Auto) 4.7 (1.0-12.0) % Eos % (Auto) 0.1 (0.0-7.0) % Baso % (Auto) 0.5 (0.0-2.0) % Lymph # (Auto) 2.19 (1.50-4.80) K/mcL Charlotte # (Auto) 0.83 (0.10-0.90) K/mcL Eos # (Auto) 0.02 (0.00-0.70) K/mcL Baso # (Auto) 0.08 (0.00-0.20) K/mcL Absolute Neutrophils 14.48 H (1.80-8.00) K/mcL ABG Methemoglobin (0.4-1.5) % VBG pH (7.32-7.42) U VBG pCO2 (41.0-51.0) mmHg VBG pO2 (25.0-40.0) mmHg VBG HCO3 (24.0-28.0) mmol/L VBG Total CO2 (25.0-29.0) mmol/L VBG O2 Saturation (40.0-70.0) % VBG Base Excess (-2-3) VBG Lactic Acid 1.5 (0.5-2.0) mmol/L Carboxyhemoglobin (0.0-1.5) % THgb Total Hemoglobin (13.5-16.5) gm/Dl Sodium 138 (133-145) mmol/L Potassium 3.6 (3.3-5.1) mmol/L Chloride 104 (96-108) mmol/L Carbon Dioxide 11 L (22-30) mmol/L Anion Gap 23.0 H (8.0-16.0) BUN 27 H (8-23) mg/dL Creatinine 1.8 H (0.7-1.2) mg/dL GFR Calculation 39 Glucose 136 H (70-105) mg/dL Calcium 6.6 L (8.6-10.4) mg/dL Total Bilirubin 0.2 (0.1-1.0) mg/dL AST 14 (<40) U/L ALT 6 (<40) U/L Alkaline Phosphatase 154 H (39-117) U/L Troponin T (<0.03) ng/mL Total Protein 8.8 H (5.9-8.4) gm/dL Albumin 2.6 L (3.2-5.2) gm/dL Globulin 6.2 H (2.2-3.7) gm/dL Albumin/Globulin Ratio 0.4 L (1.0-2.3) Lipase 27 (7-60) U/L Procalcitonin (<0.10) ng/mL Ethyl Alcohol (<0.010) gm/dL 02/14/21 02/14/21 02/14/21 Range/Units 22:03 23:17 23:17 WBC (4.5-11.0) K/mcL RBC (4.50-5.90) M/mcL Hgb (13.5-16.5) g/dL Hct (41.0-55.0) % MCV (80.0-100.0) fL MCH (26.0-34.0) pg MCHC (31.0-36.0) g/dL RDW (11.5-14.5) % Plt Count (140-440) K/mcL MPV (7.4-10.4) fL Neut % (Auto) (38.0-78.0) % Lymph % (Auto) (15.0-49.0) % Charlotte % (Auto) (1.0-12.0) % Eos % (Auto) (0.0-7.0) % Baso % (Auto) (0.0-2.0) % Lymph # (Auto) (1.50-4.80) K/mcL Charlotte # (Auto) (0.10-0.90) K/mcL Eos # (Auto) (0.00-0.70) K/mcL Baso # (Auto) (0.00-0.20) K/mcL Absolute Neutrophils (1.80-8.00) K/mcL ABG Methemoglobin 0.3 L (0.4-1.5) % VBG pH 7.25 L (7.32-7.42) U VBG pCO2 32.6 L (41.0-51.0) mmHg VBG pO2 40.2 H (25.0-40.0) mmHg VBG HCO3 13.9 L (24.0-28.0) mmol/L VBG Total CO2 14.9 L (25.0-29.0) mmol/L VBG O2 Saturation 59.9 (40.0-70.0) % VBG Base Excess -12 L (-2-3) VBG Lactic Acid (0.5-2.0) mmol/L Carboxyhemoglobin 6.9 H (0.0-1.5) % THgb Total Hemoglobin 8.0 L (13.5-16.5) gm/Dl Sodium (133-145) mmol/L Potassium (3.3-5.1) mmol/L Chloride (96-108) mmol/L Carbon Dioxide (22-30) mmol/L Anion Gap (8.0-16.0) BUN (8-23) mg/dL Creatinine (0.7-1.2) mg/dL GFR Calculation Glucose (70-105) mg/dL Calcium (8.6-10.4) mg/dL Total Bilirubin (0.1-1.0) mg/dL AST (<40) U/L ALT (<40) U/L Alkaline Phosphatase (39-117) U/L Troponin T < 0.01 (<0.03) ng/mL Total Protein (5.9-8.4) gm/dL Albumin (3.2-5.2) gm/dL Globulin (2.2-3.7) gm/dL Albumin/Globulin Ratio (1.0-2.3) Lipase (7-60) U/L Procalcitonin 8.60 H (<0.10) ng/mL Ethyl Alcohol (<0.010) gm/dL 02/14/21 02/15/21 Range/Units 23:18 04:02 WBC (4.5-11.0) K/mcL RBC (4.50-5.90) M/mcL Hgb (13.5-16.5) g/dL Hct (41.0-55.0) % MCV (80.0-100.0) fL MCH (26.0-34.0) pg MCHC (31.0-36.0) g/dL RDW (11.5-14.5) % Plt Count (140-440) K/mcL MPV (7.4-10.4) fL Neut % (Auto) (38.0-78.0) % Lymph % (Auto) (15.0-49.0) % Charlotte % (Auto) (1.0-12.0) % Eos % (Auto) (0.0-7.0) % Baso % (Auto) (0.0-2.0) % Lymph # (Auto) (1.50-4.80) K/mcL [place] # (Auto) (0.10-0.90) K/mcL Eos # (Auto) (0.00-0.70) K/mcL Baso # (Auto) (0.00-0.20) K/mcL Absolute Neutrophils (1.80-8.00) K/mcL ABG Methemoglobin 0.3 L (0.4-1.5) % VBG pH 7.29 L (7.32-7.42) U VBG pCO2 29.4 L (41.0-51.0) mmHg VBG pO2 64.5 H (25.0-40.0) mmHg VBG HCO3 13.9 L (24.0-28.0) mmol/L VBG Total CO2 14.8 L (25.0-29.0) mmol/L VBG O2 Saturation 84.6 H (40.0-70.0) % VBG Base Excess -12 L (-2-3) VBG Lactic Acid (0.5-2.0) mmol/L Carboxyhemoglobin 4.6 H (0.0-1.5) % THgb Total Hemoglobin 7.9 L (13.5-16.5) gm/Dl Sodium (133-145) mmol/L Potassium (3.3-5.1) mmol/L Chloride (96-108) mmol/L Carbon Dioxide (22-30) mmol/L Anion Gap (8.0-16.0) BUN (8-23) mg/dL Creatinine (0.7-1.2) mg/dL GFR Calculation Glucose (70-105) mg/dL Calcium (8.6-10.4) mg/dL Total Bilirubin (0.1-1.0) mg/dL AST (<40) U/L ALT (<40) U/L Alkaline Phosphatase (39-117) U/L Troponin T (<0.03) ng/mL Total Protein (5.9-8.4) gm/dL Albumin (3.2-5.2) gm/dL Globulin (2.2-3.7) gm/dL Albumin/Globulin Ratio (1.0-2.3) Lipase (7-60) U/L Procalcitonin (<0.10) ng/mL Ethyl Alcohol 0.012 H (<0.010) gm/dL ED POC Tests ED POC Tests: SACHA - SARS Antigen Negative Discharge Plan Patient/Caregiver Discharge Instructions Pt seen by TAR HEEL/PA only: No Clinical Impression: Colitis due to Clostridium difficile, Colitis, Hidradenitis suppurativa Instructions: C Diff (Clostridium Difficile) Infection (ED), Acute Nausea and Vomiting (ED), Acute Diarrhea (ED), Colitis (ED) Patient Disposition: Xfer As Outpt/Obs ([facility]) Condition: Fair Follow up with: [facility] [Primary Care Provider] - Prescriptions: No Action Humira Pen 40 mg/0.8 mL Pen Injector Kit 40 mg SUBCUT WEEKLY RF: 0
[2021-02-14] MEDS ORDERED: LORazepam 2 MG/ML VIAL IV ONE (22:33)
[2021-02-14 22:35] LABS: Basophils # (Auto) 0.08 K/mcL (0.00-0.20); Basophils % (Auto) 0.5 % (0.0-2.0); Eosinophils # (Auto) 0.02 K/mcL (0.00-0.70); Eosinophils % (Auto) 0.1 % (0.0-7.0); Hematocrit 27.9 % (41.0-55.0); Hemoglobin 8.8 g/dL (13.5-16.5); Lymphocytes # (Auto) 2.19 K/mcL (1.50-4.80); Lymphocytes % (Auto) 12.4 % (15.0-49.0); Mean Cell Volume 83.8 fL (80.0-100.0); Mean Corpuscular HGB Conc 31.5 g/dL (31.0-36.0); Mean Platelet Volume 11.1 fL (7.4-10.4); Monocytes # (Auto) 0.83 K/mcL (0.10-0.90); Monocytes % (Auto) 4.7 % (1.0-12.0); Neutrophils % (Auto) 82.3 % (38.0-78.0); Platelet Count 475 K/mcL (140-440); RBC 3.33 M/mcL (4.50-5.90); Red Cell Distribution Width 18.7 % (11.5-14.5); WBC 17.6 K/mcL (4.5-11.0)
[2021-02-14 22:56] LABS: ALT/SGPT 6 U/L (<40); AST/SGOT 14 U/L (<40); Albumin 2.6 gm/dL (3.2-5.2); Albumin/Globulin Ratio 0.4 (1.0-2.3); Alkaline Phosphatase 154 U/L (39-117); Bilirubin,Total 0.2 mg/dL (0.1-1.0); Blood Urea Nitrogen 27 mg/dL (8-23); Calcium 6.6 mg/dL (8.6-10.4); Carbon Dioxide 11 mmol/L (22-30); Chloride 104 mmol/L (96-108); Globulin 6.2 gm/dL (2.2-3.7); Glomerular Filtration Rate 39; Glucose 136 mg/dL (70-105)
[2021-02-14] MEDS ORDERED: CALCIUM GLUCONATE 4.65 MEQ in DEXTROSE 5% IN WATER 50 ML IV ONE (23:03)
[2021-02-14 23:47] LABS: ABG Methemoglobin 0.3 % (0.4-1.5); VBG Base Excess -12 (-2-3); VBG HCO3 13.9 mmol/L (24.0-28.0); VBG Oxygen Saturation 59.9 % (40.0-70.0); VBG PCO2 32.6 mmHg (41.0-51.0); VBG PH 7.25 U (7.32-7.42); VBG PO2 40.2 mmHg (25.0-40.0); VBG Total CO2 14.9 mmol/L (25.0-29.0)
[2021-02-15 00:10] LABS: Alcohol,Blood 0.012 gm/dL (<0.010)
[2021-02-15] MEDS ORDERED: cefTRIAXone 1 GM VIAL IV ONE (00:33)
[2021-02-15] MEDS ORDERED: LACTATED RINGERS 1,000 ML IV ONE ×3 (01:04→04:08)
[2021-02-15] MEDS ORDERED: DIPHENOXYLATE HCL/ATROPINE 1 TABLET PO ONE (01:04)
[2021-02-15] MEDS ORDERED: metroNIDAZOLE 500 MG TABLET PO ONE (01:06)
[2021-02-15 04:28] LABS: ABG Methemoglobin 0.3 % (0.4-1.5); Total Hemoglobin 7.9 gm/Dl (13.5-16.5); VBG Base Excess -12 (-2-3); VBG HCO3 13.9 mmol/L (24.0-28.0); VBG Oxygen Saturation 84.6 % (40.0-70.0); VBG PCO2 29.4 mmHg (41.0-51.0); VBG PH 7.29 U (7.32-7.42); VBG PO2 64.5 mmHg (25.0-40.0); VBG Total CO2 14.8 mmol/L (25.0-29.0)
--- NOTE | 2021-02-15 05:59 | Cat Scan Report ---
CLINICAL INFORMATION: Fever COMPARISON: Abdomen and pelvic CT 12/14/2020 TECHNIQUE: Enteric contrast was utilized. 80 cc of Isovue-370 were injected intravenously, and 50 seconds later 2.5 mm helical slices were obtained from the lung apices through the subtrochanteric regions of the femurs. Following reconstruction, 2.5 mm sagittal, coronal and axial reformatted images were processed and reviewed at multiple windows and levels. 7 mm MIP reconstructions were obtained through the lungs to optimize nodule detection.The exam was performed using radiation dose optimization techniques including, but not limited to, automated exposure control, adjustment of the mA and/or kV according to patient size and use of iterative reconstruction technique. FINDINGS: Pulmonary parenchymal windows stable focal fibrosis in the posterior basilar segment of the left lower lobe. The lungs are otherwise clear. There are no effusions. Mediastinal windows show the thoracic aorta and pulmonary arteries are well-opacified and normal in contour and caliber. There is no adenopathy in the mediastinal hilar or axillary regions. Heart is normal in size without appreciable calcific plaque in the coronary arteries. Tiny amount of calcification seen in the aortic valve. The esophagus is grossly normal. The thyroid is unremarkable. Abdominal images show the gallbladder and bile ducts, liver, both kidneys, adrenal glands and aorta, including aortic branches, are normal in size, configuration and attenuation without focal lesion. Complete interval resolution of pancreatitis has occurred since the prior CT two months ago. Spleen is at the upper limits of normal in size: Length 12 cm. There is no free air or free fluid. There are few moderately enlarged lymph nodes in the inguinal regions. Peripancreatic adenopathy, seen on prior exam, has involuted. Pelvic images show urinary bladder, prostate seminal vesicles to be normal. Few sigmoid diverticuli appreciated, but no evidence of diverticulitis. The remaining large bowel, appendix, small bowel and stomach are normal. Bone windows show no focal osseous lesions. At L5-S1 moderate broad disc spur complex results in severe left lateral recess and moderate bilateral IV foraminal narrowing with impingement of both exiting L5 and descending left S1 nerve roots. There is moderate inflammatory changes in the subcutaneous fat in the xiao cleft with extension superiorly into the scrotum and also posteriorly into the gluteal region. Moderate gas, associated with inflammation, suggests the possibility of Aziza's gangrene. This has progressed from the previous study modestly. In addition, there are two air collections in the subdermal soft tissues of the inferior left axillary region, 3.5 cm and 1 cm, respectively with a small amount of surrounding inflammation or fibrosis. Chronicity of these is unknown. On the right side, subdermal inflammation is seen in the right axillary region with small amounts of gas including the medial right upper arm. IMPRESSION: 1. Extensive cellulitis in the subdermal soft tissues along the nasal cleft with extension throughout the gluteal region and anteriorly into the inferior scrotum. Moderate gas, associated with the infection, has increased from previous CT two months ago. 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 2. Two air collections in the subdermal soft tissues of the left anterior axilla with associated inflammation. Infection is suspected. Smaller region of subdermal inflammation gas seen in the right anterior axilla with extension to the medial soft tissues of the right humerus and along the lateral upper chest wall. 3. Complete interval resolution in interstitial edematous pancreatitis since the CT two months prior. 4. L5-S1: Moderate broad disc spur complex resulting in severe left lateral recess and moderate bilateral IV foraminal narrowing with impingement of the descending left S1 and exiting L5 nerve roots. Please correlate with radiculopathy in these nerve root distributions Interpreted and Authenticated by: Juan Manuel Ojeda 02/15/21
[2021-02-15] MEDS ORDERED: VANCOMYCIN 1,000 MG in 0.9 % SODIUM CHLORIDE 250 ML IV ONE (06:41)
[2021-02-15] MEDS ORDERED: HYDROmorphone 0.5 MG/0.5 ML SYRINGE IV PRN (06:43)
[2021-02-15] MEDS ORDERED: MEROPENEM 0.5 GM in 0.9 % SODIUM CHLORIDE 50 ML IV SCH (06:45)
--- NOTE | 2021-02-15 13:06 | General Surg History&Physical ---
HPI History of Present Illness Patient information: Note initiated : 02/15/21 at 1:04 pm Service Date, if different from initiated Date: [] Patient: Italo Angel 60 y/o M admitted on 02/15/21 for N/V. Chief Complaint: [] Chief complaint: Nausea vomiting and diarrhea; severe hidradenitis History of present illness: Mr. 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 The patient actually came to the emergency room because of emesis and worsening pain from his extreme case of inflammatory infection in most hairbearing areas including axilla, groin and perineum; perianal and buttocks area and suprapubic area. This has been a chronic problem for 6 or more years and has been getting progressively worse. He is being followed at the [facility] and has been on chronic Humira therapy. The areas appear to be slightly worse than they were when he was here in December. Cultures during that time grew out 3 different anaerobic gram negative bacilli. He states that the Humira was effective initially but has become less effective. He is not on any other treatment at this time and has not followed closely at the [place]. He does not have gross purulence but has severe inflammatory changes with induration associated with some clear drainage and blood due to the severe inflammation. The diarrhea is intermittent and he states that it has been associated with prior antibiotic therapy. C. difficile GDH and A&B toxins are negative. Constitutional Constitutional: Present fatigue, frequent falls and malaise EENT Nose, mouth and throat: Present disequilibrium and dizziness Cardiovascular Cardiovascular: Present dyspnea on exertion, lightheadedness, palpatations and radiating pain; Absent chest pain Respiratory Respiratory: Present dyspnea; Absent cough, wheezing and chest congestion Gastrointestinal Gastrointestinal: Present diarrhea, fecal incontinence, loose stools, nausea and vomiting; Absent abdominal pain Genitourinary Genitourinary: change in urinary stream, difficulty urinating and urinary hesitancy Musculoskeletal Musculoskeletal: Present abnormal gait, arthralgias, myalgias and radiating pain into limb Integumentary Integumentary: Present acne, changing lesions, new lesions, non-healing lesions, skin ulcer, sores, swelling and wounds Neurological Neurological: Present abnormal hearing, disequilibrium, dizziness, frequent falls, headache(s), lack of coordination, tremor(s) and weakness; Absent convulsions and focal weakness Psychiatric Psychiatric: Present behavioral changes Hematologic/Lymphatic Hematologic/Lymphatic: Present easy bleeding and easy bruising Allergic/Immunologic Allergic/Immunologic: Absent tongue swelling, throat swelling, uticaria, wheezing and lip swelling PFSH PFSH All Active Problems (Updated 02/15/21 @ 13:24 by Yodit Farrell MD) Anemia (Acute) Colitis due to Clostridium difficile (Acute) Colitis (Acute) Hidradenitis suppurativa (Acute) Pancreatitis (Acute) Medical History (Updated 02/15/21 @ 13:24 by Yodit Farrell MD) History of alcohol abuse History of chronic pancreatitis MEDS/ALLERGIES Home Medications and Allergies Home Medications Medication Instructions Recorded Confirmed Type adalimumab [Humira Pen] 40 mg SUBCUT WEEKLY 12/14/20 02/14/21 History Allergies Allergy/AdvReac Type Severity Reaction Status Date / Time No Known Drug Allergies Allergy Verified 02/14/21 21:06 Physical Examination Vital Signs Vital signs: Temp Pulse Resp BP Pulse Ox 97.4 F 77 16 125/58 100 02/15/21 11:46 02/15/21 11:46 02/15/21 11:46 02/15/21 11:46 02/15/21 11:46 General physical appearance General physical exam: moderate distress, severe pain and chronically ill Eyes Eye exam: PERRL and normal ocular movement ENT ENT exam: normal nares, normal mucosa and no hearing loss Head Head exam IM: Present atraumatic, normal inspection and normocephalic Neck Neck exam: no masses, no bruits, trachea midline, no lymphadenopathy and no venous distension Cardiovascular Cardiovascular exam IM: Present normal rate and rhythm, RRR, +S1 and +S2; Absent JVD Respiratory Respiratory exam: normal expansion, normal respiratory effort and clear to auscultation Abdomen Abdomen: Present soft, tender (Tenderness of lower abdomen in the areas of acute and chronic infection mostly in subcutaneous tissue) and bowel sounds Genitourinary Genitourinary (Male): Present other (Extensive scarring of scrotum and perineum extending into the perianal area with multiple fistulous tracts draining clear fluid) Rectum Rectum: Present other (Extensive inflammatory changes and induration with excoriation of perianal area extending into the gluteal cleft) Integumentary Integumentary: Present other (Severe diffuse inflammatory changes of both axilla extending onto chest wall and involving both groins extending into the perineum and perianal area with involvement of scrotum) Neurologic Neurologic: Present normal coordination and normal sensation Musculoskeletal Musculoskeletal: Present normal gait and normal posture Psychiatric Psychiatric: Present oriented to time, oriented to person, oriented to place, speech is normal and memory intact Results Labs Result diagrams: 02/14/21 22:03 02/14/21 22:03 Labs: Abnormal lab results 02/14/21 02/14/21 02/14/21 Range/Units 22:03 22:03 23:17 WBC 17.6 H (4.5-11.0) K/mcL RBC 3.33 L (4.50-5.90) M/mcL Hgb 8.8 L (13.5-16.5) g/dL Hct 27.9 L (41.0-55.0) % RDW 18.7 H (11.5-14.5) % Plt Count 475 H (140-440) K/mcL MPV 11.1 H (7.4-10.4) fL Neut % (Auto) 82.3 H (38.0-78.0) % Lymph % (Auto) 12.4 L (15.0-49.0) % Absolute Neutrophils 14.48 H (1.80-8.00) K/mcL ABG Methemoglobin (0.4-1.5) % VBG pH (7.32-7.42) U VBG pCO2 (41.0-51.0) mmHg VBG pO2 (25.0-40.0) mmHg VBG HCO3 (24.0-28.0) mmol/L VBG Total CO2 (25.0-29.0) mmol/L VBG O2 Saturation (40.0-70.0) % VBG Base Excess (-2-3) Carboxyhemoglobin (0.0-1.5) % THgb Total Hemoglobin (13.5-16.5) gm/Dl Carbon Dioxide 11 L (22-30) mmol/L Anion Gap 23.0 H (8.0-16.0) BUN 27 H (8-23) mg/dL Creatinine 1.8 H (0.7-1.2) mg/dL Glucose 136 H (70-105) mg/dL Calcium 6.6 L (8.6-10.4) mg/dL Alkaline Phosphatase 154 H (39-117) U/L Total Protein 8.8 H (5.9-8.4) gm/dL Albumin 2.6 L (3.2-5.2) gm/dL Globulin 6.2 H (2.2-3.7) gm/dL Albumin/Globulin Ratio 0.4 L (1.0-2.3) Procalcitonin 8.60 H (<0.10) ng/mL Ethyl Alcohol (<0.010) gm/dL 02/14/21 02/14/21 02/15/21 Range/Units 23:17 23:18 04:02 WBC (4.5-11.0) K/mcL RBC (4.50-5.90) M/mcL Hgb (13.5-16.5) g/dL Hct (41.0-55.0) % RDW (11.5-14.5) % Plt Count (140-440) K/mcL MPV (7.4-10.4) fL Neut % (Auto) (38.0-78.0) % Lymph % (Auto) (15.0-49.0) % Absolute Neutrophils (1.80-8.00) K/mcL ABG Methemoglobin 0.3 L 0.3 L (0.4-1.5) % VBG pH 7.25 L 7.29 L (7.32-7.42) U VBG pCO2 32.6 L 29.4 L (41.0-51.0) mmHg VBG pO2 40.2 H 64.5 H (25.0-40.0) mmHg VBG HCO3 13.9 L 13.9 L (24.0-28.0) mmol/L VBG Total CO2 14.9 L 14.8 L (25.0-29.0) mmol/L VBG O2 Saturation 84.6 H (40.0-70.0) % VBG Base Excess -12 L -12 L (-2-3) Carboxyhemoglobin 6.9 H 4.6 H (0.0-1.5) % THgb Total Hemoglobin 8.0 L 7.9 L (13.5-16.5) gm/Dl Carbon Dioxide (22-30) mmol/L Anion Gap (8.0-16.0) BUN (8-23) mg/dL Creatinine (0.7-1.2) mg/dL Glucose (70-105) mg/dL Calcium (8.6-10.4) mg/dL Alkaline Phosphatase (39-117) U/L Total Protein (5.9-8.4) gm/dL Albumin (3.2-5.2) gm/dL Globulin (2.2-3.7) gm/dL Albumin/Globulin Ratio (1.0-2.3) Procalcitonin (<0.10) ng/mL Ethyl Alcohol 0.012 H (<0.010) gm/dL Diabetes panel 02/14/21 Range/Units 22:03 Sodium 138 (133-145) mmol/L Potassium 3.6 (3.3-5.1) mmol/L Chloride 104 (96-108) mmol/L Carbon Dioxide 11 L (22-30) mmol/L BUN 27 H (8-23) mg/dL Creatinine 1.8 H (0.7-1.2) mg/dL Glucose 136 H (70-105) mg/dL Calcium 6.6 L (8.6-10.4) mg/dL AST 14 (<40) U/L ALT 6 (<40) U/L Alkaline Phosphatase 154 H (39-117) U/L Total Protein 8.8 H (5.9-8.4) gm/dL Albumin 2.6 L (3.2-5.2) gm/dL Calcium panel 02/14/21 Range/Units 22:03 Calcium 6.6 L (8.6-10.4) mg/dL Albumin 2.6 L (3.2-5.2) gm/dL Pituitary panel 02/14/21 Range/Units 22:03 Sodium 138 (133-145) mmol/L Potassium 3.6 (3.3-5.1) mmol/L Chloride 104 (96-108) mmol/L Carbon Dioxide 11 L (22-30) mmol/L BUN 27 H (8-23) mg/dL Creatinine 1.8 H (0.7-1.2) mg/dL Glucose 136 H (70-105) mg/dL Calcium 6.6 L (8.6-10.4) mg/dL Adrenal panel 02/14/21 Range/Units 22:03 Sodium 138 (133-145) mmol/L Potassium 3.6 (3.3-5.1) mmol/L Chloride 104 (96-108) mmol/L Carbon Dioxide 11 L (22-30) mmol/L BUN 27 H (8-23) mg/dL Creatinine 1.8 H (0.7-1.2) mg/dL Glucose 136 H (70-105) mg/dL Calcium 6.6 L (8.6-10.4) mg/dL Total Bilirubin 0.2 (0.1-1.0) mg/dL AST 14 (<40) U/L ALT 6 (<40) U/L Alkaline Phosphatase 154 H (39-117) U/L Total Protein 8.8 H (5.9-8.4) gm/dL Albumin 2.6 L (3.2-5.2) gm/dL All other labs normal. A/P Assessment and plan (1) Hidradenitis suppurativa: Status: Acute (2) Anemia: Status: Acute Qualifiers: Anemia type: iron deficiency Iron deficiency anemia type: chronic blood loss Qualified Code(s): D50.0 - Iron deficiency anemia secondary to blood loss (chronic) Narrative A/P Narrative: The patient has a very severe recalcitrant case of chronic hidradenitis. It involves all hairbearing areas. It has not been responsive to any treatments. He is presently on Humira without any significant change. The subcutaneous air that was seen on CT is related to the multiple fistulous tracts in the axilla perianal and perineal area extending into the base of the scrotum. This is not compatible with Aziza's gangrene as described. Since his cultures have grew out anaerobic species of bacteria he can be treated with metronidazole long-term. He may also respond to doxycycline. With his long- term immunosuppression it is best that he not be hospitalized since he will be exposed to other virulent bacteria that may lead to fatal outcome. Because of this he is discharged on a month supply of metronidazole with instructions to have follow-up at the [facility]. He probably needs to be seen at an academic dermatology group for trials of other immunomodulators drugs. This is explained to him and he is advised that he will be discharged. I will give him a starting dose of analgesics but cannot prescribe it long-term. Time Spent With Patient Time: Total time spent is greater than 50% in coordination of care (as documented) at patient's floor/unit and/or counseling patient:
== END 2021-02-15 15:11 | disposition home or self-care (01) ==
LOC: ED 21:00 → MEDSUR 02-15 08:33 → INTOOBSV 02-15 08:33 → MEDSUR 02-15 08:40
PROVIDERS: ADMIT Family Medicine Adult Medicine; ATTEND Family Medicine Adult Medicine